=== PATIENT | male | born 1985 | race Caucasian/White ===

== ENCOUNTER 2021-07-30 08:46 | Outpatient (REF) | payer OTHER, SELFPAY ==
[2021-07-30 09:09] LABS: COVID-19 Test Negative (Negative); IDNOW Serial# 16C4AD1C
== END 2021-07-30 08:47 | disposition home or self-care (01) ==
LOC: HO.LAB 08:46
PROVIDERS: Visit Provider Internal Medicine
DX: Z20.822 Contact with and (suspected) exposure to COVID-19 (principal)
CPT/HCPCS: 36415; 87635; C9803

== ENCOUNTER 2021-11-26 09:15 | Outpatient (REF) | payer OTHER, SELFPAY ==
[2021-11-26 10:33] LABS: Alanine Aminotransferase 36 U/L (0-40); Aspartate Amino Transferase 28 U/L (5-37); Gamma Glutamyl Transpeptidase 15 U/L (11-51)
== END 2021-11-26 09:16 | disposition home or self-care (01) ==
LOC: HO.LAB 09:15
PROVIDERS: Visit Provider Nurse Practitioner Family
DX: F11.20 Opioid dependence, uncomplicated (principal)
CPT/HCPCS: 36415; 82977; 84450; 84460

== ENCOUNTER 2023-11-27 19:45 | Emergency (ER) | payer OTHER, SELFPAY ==
--- NOTE | 2023-11-27 | ECG_ITS ---
Test Reason : SEIZURE Blood Pressure : / mmHG Vent. Rate : 090 BPM Atrial Rate : 090 BPM P-R Int : 148 ms QRS Dur : 090 ms QT Int : 372 ms P-R-T Axes : 045 005 041 degrees QTc Int : 455 ms Normal sinus rhythm Normal ECG When compared with ECG of 09-FEB-2005 11:33, Vent. rate has increased BY 34 BPM Questionable change in QRS axis ST now depressed in Anterior leads QT has lengthened Referred By: Generic ED Physician Electronically Signed By:Kael Zambrano
--- NOTE | ~2023-11-27 | CT_ITS ---
EXAMINATION: CT HEAD WITHOUT CONTRAST CLINICAL INFORMATION: New onset seizure COMPARISON: None available. TECHNIQUE: Contiguous axial imaging was performed from the skull base to vertex without intravenous administration of contrast. This CT examination was performed using dose optimization techniques as appropriate, variously including the following: *Automated exposure control *Adjustment of mA and/or kV according to patient size (this includes techniques or standardized protocols for targeted exams where dose is matched to indication/reason for exam; i.e. extremities or head) *Use of iterative reconstruction technique DLP: 723 mGy-cm FINDINGS: There is no evidence of acute intracranial hemorrhage or territorial infarction. Prominent cisterna magna. No abnormal mass effect or midline shift is seen. Webb to white matter differentiation is well preserved. No extra-axial fluid collections are identified. The ventricles are normal in size. There is no abnormal attenuation within the brain parenchyma. The osseous structures and soft tissues are normal. The mastoid air cells and visualized portions of the paranasal sinuses are well aerated. CT/CT head/brain wo IV con IMPRESSION: No acute intracranial pathology.
[2023-11-27 19:50] VITALS: BP 120/80; BP 148/77; PULSE 109; PULSE 112; RESP 14; TEMP 36.9; O2SAT 95; O2SAT 98; BMI 29.3
--- NOTE | 2023-11-27 20:03 | ED.SEIZURE ---
HPI - Seizure General Chief Complaint: Seizure Stated Complaint: SEIZURE,NO SZ HISTORY Time Seen by Provider: 11/27/23 19:51 Source: patient and family Mode of arrival: EMS Limitations: no limitations History of Present Illness HPI Narrative: Patient has no history of seizure disorder on Suboxone was found on the kitchen floor conversing by his lasted for about 2 minutes tonic-clonic patient does not remember patient was confused and postictal after the episode no history of alcohol or drug abuse no family history of seizures no headache no sleep deprivation no use of cocaine or tramadol or Wellbutrin Related Data Previous Rx's ?Medication ?Instructions ?Recorded levetiracetam 500 mg tablet 500 mg PO BID #60 tabs 11/27/23 (Keppra) Allergies Allergy/AdvReac Type Severity Reaction Status Date / Time No Known Allergies Allergy Verified 11/27/23 19:52 Review of Systems Review of Systems: Yes all other systems are reviewed and are negative [facility] Social History Social History Alcohol intake: never Smoked in Last 30 Days: No Use of substances other than those prescribed or required for medical reasons: Yes Substance Use Type: Marijuana Advance Directives: No Advance Directives Information Provided: No Physical Exam Vital Signs: Vital Signs: Last Vital Signs Temp 98.1 F 11/27/23 22:15 Pulse 74 11/27/23 22:15 Resp 16 11/27/23 22:15 BP 134/74 11/27/23 22:15 Pulse Ox 95 11/27/23 22:05 O2 Del Method Room Air 11/27/23 22:05 BMI result Body Mass Index 29.3 Appearance: Alert. Oriented X3. No acute distress. Eyes: PERRLA, No Nystagmus ENT: Pharynx normal. Oral Mucosa moist, at nc no tongue bite Neck: Normal inspection. Neck supple. CVS: Normal heart rate and rhythm. Pulses normal. Respiratory: No respiratory distress. Equal air entry bilateral, no wheezing/rales/rhonchi Abdomen: Soft and nontender. Bowel sounds are present, no mass palpable, no CVA tenderness Skin: Skin warm and dry. Normal skin color. Normal skin turgor. Extremities: No lower extremity edema. No calf tenderness Neuro: Oriented X 3. No motor deficit. No sensory deficit.No cerebellar signs , cranial nerves II-XII intact Medications Administered Discontinued Medications Generic Name Dose Route Start Last Admin Trade Name Freq PRN Reason Stop Dose Admin Levetiracetam 1,000 mg in 100 mls @ 400 mls/hr 11/27/23 21:14 11/27/23 21:49 Keppra IV 11/27/23 21:28 Infused ONCE ONE Infusion Medical Decision Making Medical Decision Making [facility] Narrative: Patient with new onset grand mal seizure witnessed by patient's case discussed with Dr. Salinas advised to start care Keppra for now and will see him in 3 days for further management CT scan of the head was negative for HERMINIA or any injury Differential Diagnosis Differential Diagnoses: The differential diagnosis associated with the presentation includes Grand mal seizures Admission/Observation Consideration of admission/observation: Escalation of care including admission/observation considered Lab Data [facility] Lab Attestation statement: I reviewed the patient's lab results. 11/27/23 20:04 11/27/23 20:04 Labs: Lab Results 11/27/23 11/27/23 Range/Units 20:04 20:20 WBC 10.4 (4.8-10.8) X10*3/uL RBC 4.98 (4.60-5.80) X10*6/uL Hgb 14.2 (14.0-18.0) g/dl Hct 39.8 L (42.0-52.0) % MCV 79.9 L (80.0-98.0) fL MCH 28.5 (27.0-33.0) pg MCHC 35.7 (31.0-36.0) g/dl RDW 13.2 (11.0-16.0) % Plt Count 315 (160-400) X10*3/uL MPV 9.1 L (9.4-12.4) fL Immature Gran % (Auto) 0.7 H (0.0-0.4) % Neut % (Auto) 50.1 (45-73) % Lymph % (Auto) 40.3 H (20-40) % [place] % (Auto) 6.8 (2-11) % Eos % (Auto) 1.7 (0-4) % Baso % (Auto) 0.4 (0-2) % Lymph # (Auto) 4.2 (1.2-4.9) X10*3/uL [place] # (Auto) 0.7 (0.1-1.2) X10*3/uL Eos # (Auto) 0.2 (0.0-0.4) X10*3/uL Baso # (Auto) 0.0 (0.0-0.2) X10*3/uL Abs Immat Gran (auto) 0.07 H (0.00-0.03) X10*3/uL Absolute Neuts (auto) 5.2 (2.0-8.3) x10*3/uL Absolute Nucleated RBC 0.000 (0.0-0.012) X10*3/uL Nucleated RBC % (auto) 0.0 (0.0-0.2) /100WBC Sodium 141 (135-145) mmol/L Potassium 3.4 (3.3-5.1) mmol/L Chloride 106 (96-108) mmol/L Carbon Dioxide 23 (22-29) mmol/L Anion Gap 15 (12-20) BUN 15 (9-16) mg/dL Creatinine 0.86 (0.5-1.4) mg/dL Estim Creat Clear Calc 128.8 Estimated GFR > 60 Random Glucose 113 (60-115) mg/dL Calcium 9.5 (8.4-10.2) mg/dL Magnesium 2.2 (1.6-2.6) mg/dL Total Bilirubin 0.4 (0.0-1.0) mg/dL AST 23 (5-37) U/L ALT 17 (0-40) U/L Alkaline Phosphatase 90 (39-117) U/L Total Protein 7.5 (6.5-8.0) g/dL Albumin 4.4 (3.5-5.0) g/dL Urine Opiates Screen Not Detected (Not Detect) Urine Fentanyl Screen Not Detected (Not Detect) Ur Barbiturates Screen Not Detected (Not Detect) Ur Phencyclidine Scrn Not Detected (Not Detect) Ur Amphetamines Screen Not Detected (Not Detect) U Benzodiazepines Scrn Not Detected (Not Detect) Urine Cocaine Screen Not Detected (Not Detect) U Marijuana (THC) Screen Not Detected (Not Detect) Independent Interpretation I performed an independent interpretation of an: CT Scan Radiology Impression Discussion of test interpretation with radiology: I have reviewed the radiologist's reading. Discharge Plan Discharge Clinical Impression: Epileptic seizure Patient Disposition: Home, Self-Care Instructions: New-Onset Seizure in Adults (ED) Additional Instructions: Likely your have grand mal seizure Avoid sleep deprivation Do not drive or stay alone at a risky area for fall Start taking Keppra 500 mg twice daily and see Dr. Salinas on 11/30 Prescriptions: New levetiracetam [Keppra] 500 mg tablet 500 mg PO BID Qty: 60 0RF Referrals: Frederic Salinas MD [Physician] - 12/01/23 Interventions: ED Discharge Assessment Last Done: 11/27/23 22:15 Discharge Date/Time: 11/27/23 22:30 Print Language: Romansh
[2023-11-27 20:09] LABS: MANUAL DIFF FLAG NO
[2023-11-27 20:10] LABS: Basophils Percent Auto 0.4 % (0-2); Eosinophils Absolute Auto 0.2 X10*3/uL (0.0-0.4); Eosinophils Percent Auto 1.7 % (0-4); Hematocrit 39.8 % (42.0-52.0); Hemoglobin 14.2 g/dl (14.0-18.0); Imm Gran Abs Auto 0.07 X10*3/uL (0.00-0.03); Imm Gran Pct Auto 0.7 % (0.0-0.4); Lymphocytes Absolute Auto 4.2 X10*3/uL (1.2-4.9); Lymphocytes Percent Auto 40.3 % (20-40); Mean Corpuscular HGB Conc 35.7 g/dl (31.0-36.0); Mean Corpuscular Hemoglobin 28.5 pg (27.0-33.0); Mean Corpuscular Volume 79.9 fL (80.0-98.0); Mean Platelet Volume 9.1 fL (9.4-12.4); Monocytes Absolute Auto 0.7 X10*3/uL (0.1-1.2); Monocytes Percent Auto 6.8 % (2-11); Neutrophils Absolute Auto 5.2 x10*3/uL (2.0-8.3); Neutrophils Percent Auto 50.1 % (45-73); Platelet Count 315 X10*3/uL (160-400); Red Blood Count 4.98 X10*6/uL (4.60-5.80); Red Cell Distribution Width 13.2 % (11.0-16.0); White Blood Count 10.4 X10*3/uL (4.8-10.8)
[2023-11-27 20:23] LABS: Alanine Aminotransferase 17 U/L (0-40); Albumin Level 4.4 g/dL (3.5-5.0); Alkaline Phosphatase 90 U/L (39-117); Anion Gap 15 (12-20); Aspartate Amino Transferase 23 U/L (5-37); Bilirubin Total 0.4 mg/dL (0.0-1.0); Blood Urea Nitrogen 15 mg/dL (9-16); Calcium 9.5 mg/dL (8.4-10.2); Carbon Dioxide 23 mmol/L (22-29); Chloride 106 mmol/L (96-108); Creatinine Clr Calc Pharmacy 128.8; Estimated Glomerular Filt Rate > 60; Glucose Random 113 mg/dL (60-115); Magnesium 2.2 mg/dL (1.6-2.6); Potassium 3.4 mmol/L (3.3-5.1); Sodium 141 mmol/L (135-145); Total Protein 7.5 g/dL (6.5-8.0)
[2023-11-27 20:33] LABS: Amphetamine Screen Urine Not Detected (Not Detect); Barbiturates, Urine Not Detected (Not Detect); Benzodiazepines Screen Urine Not Detected (Not Detect); Cannabinoid Screen Urine Not Detected (Not Detect); Cocaine Screen Urine Not Detected (Not Detect); Fentanyl, urine Not Detected (Not Detect); Opiate Screen Urine Not Detected (Not Detect); Phencyclidine Screen Urine Not Detected (Not Detect)
[2023-11-27] MEDS: levETIRAcetam in NaCl (iso-os) 1,000 MG/100 ML PIGGYBACK 400 MG IV (21:27)
[2023-11-27 22:05] VITALS: BP 134/74; PULSE 68; RESP 16; TEMP 36.7; O2SAT 95
[2023-11-27 22:15] VITALS: BP 134/74; PULSE 74; RESP 16; TEMP 36.7
== END 2023-11-27 22:30 | disposition home or self-care (01) ==
PROVIDERS: Emergency Provider Internal Medicine
DX: R56.9 Unspecified convulsions (principal); R41.0 Disorientation, unspecified; Z79.899 Other long term (current) drug therapy; Z51.81 Encounter for therapeutic drug level monitoring
CPT/HCPCS: 36415; 70450; 80053; 80307; 83735; 85025; 93005; 96365; 99284; 99285; J1953

== ENCOUNTER → 2023-11-27 19:54 | Outpatient (BNV) | payer OTHER, SELFPAY | PROVIDERS: Emergency Provider Internal Medicine; Visit Provider Internal Medicine Cardiovascular Disease | DX: I45.81 Long QT syndrome (principal) | CPT/HCPCS: 93010 ==

== ENCOUNTER 2023-12-01 09:20 | Outpatient (REF) | payer OTHER, SELFPAY ==
[2023-12-01 10:32] LABS: Erythrocyte Sedimentation Rate 7 MM/HR (0-15)
[2023-12-02 09:50] LABS: Lyme Abs Screen <0.90 index
[2023-12-03 15:34] LABS: Anti Nuclear Antibody Screen NEGATIVE (NEGATIVE)
== END 2023-12-01 09:21 | disposition home or self-care (01) ==
LOC: HO.LAB 09:20
PROVIDERS: Visit Provider Psychiatry & Neurology Neurology
DX: R56.9 Unspecified convulsions (principal)
CPT/HCPCS: 36415; 85652; 86038; 86617; 86618

== ENCOUNTER 2023-12-17 15:05 | Outpatient (REF) | payer OTHER, SELFPAY ==
--- NOTE | ~2023-12-17 | MR_ITS ---
EXAMINATION: MR BRAIN WITHOUT AND WITH CONTRAST CLINICAL INFORMATION: Generalized seizure COMPARISON: None available. TECHNIQUE: Multiplanar, multisequence MRI of the brain was obtained before and after the intravenous administration of 9 mL Gadavist. FINDINGS: No acute intracranial hemorrhage or infarct. Dedicated coronal oblique imaging through the temporal lobes demonstrate symmetric size, signal intensity, and morphological appearance of the hippocampal formations. No evidence for mesial temporal sclerosis. . No edema, midline shift or hydrocephalus. No acute extra-axial fluid collections. The osseous structures are unremarkable. The pituitary gland, pineal gland and remaining midline structures are unremarkable. No orbital pathology. The paranasal sinuses and mastoid air cells are clear. MR/MR head/brain wo/w con IMPRESSION: Normal brain MRI.
[2023-12-17] MEDS: gadobutroL 10 ML VIAL IVPUSH (16:17)
== END 2023-12-17 15:06 | disposition home or self-care (01) ==
LOC: HO.MRI 15:05
PROVIDERS: Visit Provider Psychiatry & Neurology Neurology
DX: R56.9 Unspecified convulsions (principal)
CPT/HCPCS: 70553; A9585

== ENCOUNTER 2024-05-01 07:31 | Emergency (ER) | payer OTHER, SELFPAY ==
[2024-05-01 07:33] VITALS: BP 132/80; PULSE 69; RESP 18; TEMP 36.5; O2SAT 100; BMI 28.9
--- NOTE | 2024-05-01 07:49 | ED_ITS ---
HPI - Allergic Reaction General Chief complaint: Allergic Reaction Stated complaint: bee sting allergic reaction Time Seen by Provider: 05/01/24 07:49 Source: patient Mode of arrival: ambulatory Limitations: no limitations History of Present Illness ED Provider: Chauncey Lang PA-C HPI narrative: 38 yo male presents to the ER for evaluation of itching, burning in the site of a recent bee sting 3 days ago. He states he was riding a tractor mowing a lawn when he got stung on the underside of both of his upper extremities, probably 2 or 3 times he states. He states the areas are still very itchy and burning. They feel warm and swollen. He has taken Benadryl the last 2 nights with minimal relief. He has also tried [id number] topical creams like Benadryl and hydrocortisone with minimal relief. He denies any redness to the area, no streaking on his arms. No fevers or chills. No difficulty breathing or facial swelling. No history of anaphylaxis. MD complaint: allergic reaction Onset (ago): day(s) Exposure: insect bite Symptoms: itching Severity: moderate Treatment prior to arrival: benadryl and topical medicine Previous Allergic Reaction History: none Related Data Previous Rx's ?Medication ?Instructions ?Recorded levetiracetam 500 mg tablet 500 mg PO BID #60 tabs 11/27/23 (Keppra) prednisone 20 mg tablet 40 mg (2 x 20 mg) PO DAILY #8 tabs 05/01/24 Allergies Allergy/AdvReac Type Severity Reaction Status Date / Time No Known Allergies Allergy Verified 05/01/24 07:37 Review of Systems Review of Systems: Yes all other systems are reviewed and are negative [facility] Social History Social History Alcohol intake: never Smoked in Last 30 Days: No Use of substances other than those prescribed or required for medical reasons: No Substance Use Type: Marijuana Advance Directives: No Advance Directives Information Provided: Yes Do you have a plan to hurt others: No Plan Physical Exam ED Vital Signs: Vital Signs - 24 hr 05/01/24 07:33 05/01/24 07:58 Temperature 97.7 F 98.0 F Pulse Rate 69 72 Respiratory Rate 18 18 Blood Pressure 132/80 134/69 Pulse Oximetry 100 100 Oxygen Delivery Method Room Air Room Air BMI result Body Mass Index 28.9 Appearance: Alert. Oriented X3. No acute distress. Head: normocephalic, atraumatic. Eyes: Pupils equal, round and reactive to light. ENT: Pharynx normal. No tonsillar swelling or exudate. Neck: Normal inspection. Neck supple. CVS: Normal heart rate and rhythm. Pulses normal. Respiratory: No respiratory distress. Breath sounds normal. Skin: Skin warm and dry. Normal skin color. Normal skin turgor. dorsum of the bilateral upper arms are mildly swollen, no erythema, no obvious sting sites, mild warmth to touch. no rashes. Extremities: No lower extremity edema. No joint swelling. Neuro/psych: Oriented X 3. grossly normal nonfocal Medical Decision Making Medical Decision Making MDM Narrative: 38-year-old male presents to the ER for evaluation of a pruritic and burning sensation to the underside of both of his arms after he got stung by bees in the area 3 days ago. Minimal relief with Benadryl and topical agents. Exam was consistent with some mild inflammatory response due to the bee stings. No evidence of cellulitis. No large hives present. Due to his ongoing symptoms will treat with short course of prednisone. Encouraged to continue antihistamines and topical agents for his symptoms. Stable for discharge home, return precautions were discussed. Differential Diagnosis Differential Diagnoses: The differential diagnosis associated with the presentation includes allergic reaction, hives, contact dermatitis, hypersensitivity reaction, neuropathy, cellulitis. External Record Review External record reviewed: Prior outpatient labs Prescription Management I considered prescription management with: Pain Medication and Other (Steroids and antihistamines) Critical Care Time Critical Care Time Critical Care Time: No Discharge Plan Discharge Clinical Impression: Allergic reaction Qualifiers: Encounter type: initial encounter Qualified Code(s): T78.40XA - Allergy, unspecified, initial encounter Patient Disposition: Home, Self-Care Instructions: General Allergic Reaction (ED) Additional Instructions: Take the prescribed Benadryl each morning for the next 4 days. Continue to take antihistamines until your symptoms are resolved. If Benadryl makes her too tired, you can take Claritin or Zyrtec in the morning. Continue to use topical hydrocortisone and Benadryl as needed for your symptoms. Monitor for signs of infection including increased redness, pain, swelling, warmth and firmness. If you develop new or worsening symptoms call 911 or come back to the ER for further evaluation. Prescriptions: New prednisone 20 mg tablet 40 mg PO DAILY Qty: 8 0RF No Action levetiracetam [Keppra] 500 mg tablet 500 mg PO BID Qty: 60 0RF Interventions: ED Discharge Assessment Last Done: 05/01/24 07:58 Discharge Date/Time: 05/01/24 08:03 Print Language: [place]
[2024-05-01 07:58] VITALS: BP 134/69; PULSE 72; RESP 18; TEMP 36.7; O2SAT 100
== END 2024-05-01 08:03 | disposition home or self-care (01) ==
LOC: HO.ED 08:00
PROVIDERS: Emergency Provider Emergency Medicine
DX: T63.441A Toxic effect of venom of bees, accidental (unintentional), initial encounter (principal); L29.8 Other pruritus; Y92.017 Garden or yard in single-family (private) house as the place of occurrence of the external cause
CPT/HCPCS: 99283; 99284

== ENCOUNTER 2024-07-18 05:30 | Emergency (ER) | payer OTHER, SELFPAY ==
--- NOTE | 2024-07-18 | ECG_ITS ---
Test Reason : SEIZURE Blood Pressure : / mmHG Vent. Rate : 101 BPM Atrial Rate : 101 BPM P-R Int : 138 ms QRS Dur : 088 ms QT Int : 360 ms P-R-T Axes : 051 006 026 degrees QTc Int : 466 ms Sinus tachycardia Otherwise normal ECG When compared with ECG of 27-NOV-2023 19:54, No significant change was found Referred By: Generic ED Physician Electronically Signed By:BENSON BRINK
[2024-07-18 05:36] VITALS: BMI 27.5
[2024-07-18 05:47] LABS: MANUAL DIFF FLAG NO
[2024-07-18 05:48] LABS: Basophils Absolute Auto 0.1 X10*3/uL (0.0-0.2); Basophils Percent Auto 0.4 % (0-2); Eosinophils Absolute Auto 0.3 X10*3/uL (0.0-0.4); Eosinophils Percent Auto 2.1 % (0-4); Hematocrit 42.7 % (42.0-52.0); Hemoglobin 14.7 g/dl (14.0-18.0); Imm Gran Abs Auto 0.06 X10*3/uL (0.00-0.03); Imm Gran Pct Auto 0.4 % (0.0-0.4); Lymphocytes Absolute Auto 4.1 X10*3/uL (1.2-4.9); Lymphocytes Percent Auto 29.3 % (20-40); Mean Corpuscular HGB Conc 34.4 g/dl (31.0-36.0); Mean Corpuscular Hemoglobin 28.1 pg (27.0-33.0); Mean Corpuscular Volume 81.6 fL (80.0-98.0); Neutrophils Absolute Auto 8.5 x10*3/uL (2.0-8.3); Neutrophils Percent Auto 60.8 % (45-73); Platelet Count 322 X10*3/uL (160-400); Red Blood Count 5.23 X10*6/uL (4.60-5.80); Red Cell Distribution Width 12.8 % (11.0-16.0); White Blood Count 13.9 X10*3/uL (4.8-10.8)
[2024-07-18 06:03] LABS: Alanine Aminotransferase 15 U/L (0-40); Albumin Level 4.6 g/dL (3.5-5.0); Alkaline Phosphatase 89 U/L (39-117); Anion Gap 14 (12-20); Aspartate Amino Transferase 24 U/L (5-37); Bilirubin Total 0.7 mg/dL (0.0-1.0); Blood Urea Nitrogen 19 mg/dL (9-16); Calcium 9.7 mg/dL (8.4-10.2); Carbon Dioxide 25 mmol/L (22-29); Chloride 105 mmol/L (96-108); Creatinine Clr Calc Pharmacy 108.4; Estimated Glomerular Filt Rate > 60; Glucose Random 108 mg/dL (60-115); Potassium 3.5 mmol/L (3.3-5.1); Sodium 140 mmol/L (135-145); Total Protein 7.5 g/dL (6.5-8.0)
[2024-07-18 06:46] VITALS: BP 113/63; PULSE 73; RESP 12; TEMP 36.9; O2SAT 99
[2024-07-18] MEDS: 0.9 % Sodium Chloride 1,000 ML 999 ML IV (07:36)
[2024-07-18] MEDS: levETIRAcetam in NaCl (iso-os) 1,000 MG/100 ML PIGGYBACK 400 MG IV (07:36)
[2024-07-18 07:37] VITALS: BP 119/75; PULSE 70; RESP 16; O2SAT 99
--- NOTE | 2024-07-18 07:51 | ED_ITS ---
HPI - Seizure General Chief Complaint: Seizure Stated Complaint: sezuire in sleep Time Seen by Provider: 07/18/24 06:54 Source: patient and other Mode of arrival: ambulatory Limitations: no limitations History of Present Illness ED Provider: GERARDO HPI Narrative: 38 yo male with PMH of seizures on keppra 500mg BID, last seizure 6 months ago, uses suboxone as well - he notes possibly missing 2 doses of his keppra yesterday and then worked all day and did not drink enough water. He had a 1 min GTC seizure in bed and was postictal. No other recent issues or complaints. Normal amount of stress. No trauma with seizure other than abrasion on R tongue MD complaint: seizure Onset (ago): hour(s) (1) Description of Episode: loss of consciousness and tonic-clonic movement Duration of episode: 1 -: minutes(s) Witnessed: Yes - by Bystander Trauma: No Seizure History: No Place: Home Possible Precipitating Event: medication Associated symptoms: denies other symptoms Treatments prior to arrival: none Related Data Previous Rx's ?Medication ?Instructions ?Recorded levetiracetam 500 mg tablet 500 mg PO BID #60 tabs 11/27/23 (Keppra) prednisone 20 mg tablet 40 mg (2 x 20 mg) PO DAILY #8 tabs 05/01/24 Allergies Allergy/AdvReac Type Severity Reaction Status Date / Time No Known Allergies Allergy Verified 07/18/24 05:39 Review of Systems 2 Review of Systems: Constitutional : No Fever, No Chills, No Fatigue ENT/Mouth : No sore throat, No Rhinorrhea Eyes: No Eye Pain, No Swelling, No Redness Cardiovascular : No Chest Pain, No SOB, No Dyspnea on Exertion Respiratory : No Cough, No Sputum Gastrointestinal : No Nausea, No Vomiting, No Diarrhea, No abdominal Pain Genitourinary : No Dysuria, No Urinary Frequency, No Hematuria, Musculoskeletal : No joint pain, No Myalgias, No Joint Swelling Skin : No Skin Lesions, No rash Neuro : No Weakness, No Numbness, No Dizziness, no Headache, pos seizure All other systems reviewed and are negative [facility] Past Medical History Attestation statement: The following information was validated with the patient. Source: old records reviewed Medical History Seizure Social History Social History (Updated 07/18/24 @ 07:57 by Leticia Jones DO) Alcohol intake: never Patient Tobacco Use Status: Tobacco use Unknown Substance Use Type: Marijuana Advance Directives: No Advance Directives Information Provided: Yes Physical Exam 2 Vital Signs: Vital Signs: Last Vital Signs Temp 98.5 F 07/18/24 06:46 Pulse 70 07/18/24 07:37 Resp 16 07/18/24 07:37 BP 119/75 07/18/24 07:37 Pulse Ox 99 07/18/24 07:37 O2 Del Method Room Air 07/18/24 07:37 BMI result Body Mass Index 27.5 Appearance: Alert. Oriented X3. No acute distress. Eyes: Pupils equal, round and reactive to light. ENT: Pharynx mild abrasion R side of tongue. atraumatic Neck: Normal inspection. Neck supple. CVS: Normal heart rate and rhythm. Pulses normal. Respiratory: No respiratory distress. Breath sounds normal. Abdomen: Soft and nontender. Skin: Skin warm and dry. Normal skin color. Extremities: No lower extremity edema. Neuro: Oriented X 3. No motor deficit. No sensory deficit. Medications Administered Generic Name Dose Route Start Last Admin Trade Name Freq PRN Reason Stop Dose Admin Sodium Chloride 1,000 mls @ 999 mls/hr 07/18/24 07:19 07/18/24 07:36 Ns IV 07/18/24 08:19 999 mls/hr .Q1H1M ONE Administration Discontinued Medications Generic Name Dose Route Start Last Admin Trade Name Freq PRN Reason Stop Dose Admin Levetiracetam 1,000 mg in 100 mls @ 400 mls/hr 07/18/24 07:19 07/18/24 07:36 Keppra IV 07/18/24 07:33 400 mls/hr ONCE ONE Administration Medical Decision Making Medical Decision Making MDM Narrative: 38 yo male with PMH of seizures on keppra 500mg BID here with c/o of seizure in bed back to baseline now but was postictal - no head trauma, not toxic, suspect due to lack of medications - will start on fluids and IV keppra. No other concerns at this time Differential Diagnosis Differential Diagnoses: The differential diagnosis associated with the presentation includes lyte abnormality, lack of medications, epilepsy Admission/Observation Consideration of admission/observation: Escalation of care including admission/observation considered at baseline has meds at home stable for DC Lab Data MDM Lab Attestation statement: I reviewed the patient's lab results. 07/18/24 05:43 07/18/24 05:43 Labs: Lab Results 07/18/24 Range/Units 05:43 WBC 13.9 H (4.8-10.8) X10*3/uL RBC 5.23 (4.60-5.80) X10*6/uL Hgb 14.7 (14.0-18.0) g/dl Hct 42.7 (42.0-52.0) % MCV 81.6 (80.0-98.0) fL MCH 28.1 (27.0-33.0) pg MCHC 34.4 (31.0-36.0) g/dl RDW 12.8 (11.0-16.0) % Plt Count 322 (160-400) X10*3/uL MPV 9.0 L (9.4-12.4) fL Immature Gran % (Auto) 0.4 (0.0-0.4) % Neut % (Auto) 60.8 (45-73) % Lymph % (Auto) 29.3 (20-40) % [place] % (Auto) 7.0 (2-11) % Eos % (Auto) 2.1 (0-4) % Baso % (Auto) 0.4 (0-2) % Lymph # (Auto) 4.1 (1.2-4.9) X10*3/uL [place] # (Auto) 1.0 (0.1-1.2) X10*3/uL Eos # (Auto) 0.3 (0.0-0.4) X10*3/uL Baso # (Auto) 0.1 (0.0-0.2) X10*3/uL Abs Immat Gran (auto) 0.06 H (0.00-0.03) X10*3/uL Absolute Neuts (auto) 8.5 H (2.0-8.3) x10*3/uL Absolute Nucleated RBC 0.000 (0.0-0.012) X10*3/uL Nucleated RBC % (auto) 0.0 (0.0-0.2) /100WBC Sodium 140 (135-145) mmol/L Potassium 3.5 (3.3-5.1) mmol/L Chloride 105 (96-108) mmol/L Carbon Dioxide 25 (22-29) mmol/L Anion Gap 14 (12-20) BUN 19 H (9-16) mg/dL Creatinine 0.99 (0.5-1.4) mg/dL Estim Creat Clear Calc 108.4 Estimated GFR > 60 Random Glucose 108 (60-115) mg/dL Calcium 9.7 (8.4-10.2) mg/dL Total Bilirubin 0.7 (0.0-1.0) mg/dL AST 24 (5-37) U/L ALT 15 (0-40) U/L Alkaline Phosphatase 89 (39-117) U/L Total Protein 7.5 (6.5-8.0) g/dL Albumin 4.6 (3.5-5.0) g/dL Independent Interpretation I performed an independent interpretation of an: EKG Interpretation: Rate: 101 Rhythm: sinus tach [place]: left Normal P waves. Normal MANJU. Normal QRS complex. ST T wave : no GILBERT, t wave inversion V1 qTC: 466 prior studies: no acute ischemia The study has been interpreted contemporaneously by me. . Independent Historian Clinical information obtained from an independent historian. History obtained from or confirmed by: Spouse Discharge Plan Discharge Clinical Impression: Epileptic seizure Patient Disposition: Home, Self-Care Instructions: Epilepsy (ED) Additional Instructions: rest and stay hydrated given keppra while in the ED return for worsening symptoms or any other concerns. Prescriptions: No Action levetiracetam [Keppra] 500 mg tablet 500 mg PO BID Qty: 60 0RF prednisone 20 mg tablet 40 mg PO DAILY Qty: 8 0RF Print Language: Yi
[2024-07-18 08:44] VITALS: BP 117/69; PULSE 72; RESP 18; TEMP 36.7; O2SAT 99
[2024-07-21 11:13] LABS: Levetiracetam Keppra 2.4 mcg/mL (6.0-46.0)
== END 2024-07-18 08:47 | disposition home or self-care (01) ==
PROVIDERS: Emergency Provider Emergency Medicine
DX: G40.909 Epilepsy, unspecified, not intractable, without status epilepticus (principal); R40.4 Transient alteration of awareness; R00.0 Tachycardia, unspecified; Z79.899 Other long term (current) drug therapy
CPT/HCPCS: 36415; 80053; 80177; 85025; 93005; 99284; J1953

== ENCOUNTER → 2024-07-18 05:46 | Outpatient (BNV) | payer OTHER, SELFPAY | PROVIDERS: Emergency Provider Emergency Medicine; Visit Provider Internal Medicine | DX: R00.0 Tachycardia, unspecified (principal) | CPT/HCPCS: 93010 ==

== ENCOUNTER 2024-11-09 07:54 | Emergency (ER) | payer OTHER, SELFPAY ==
[2024-11-09 07:58] VITALS: BP 148/81; PULSE 90; TEMP 36.7; O2SAT 99; BMI 26.9
--- NOTE | 2024-11-09 08:46 | ED.SEIZURE ---
HPI - Seizure General Chief Complaint: Seizure Stated Complaint: seizure Time Seen by Provider: 11/09/24 08:44 Source: patient, RN notes reviewed, old records reviewed and other (significant other) Mode of arrival: ambulatory Limitations: no limitations History of Present Illness ED Provider: Rosalina [facility] Narrative: Patient is a 38-year-old male with history of seizures, currently on keppra 500mg BID, also on suboxone presenting to the emergency department with significant other who reports that patient had a seizure this morning lasting approximately one minute followed by postictal period. Seizure was while patient was in bed, he did not fall, no headstrike. She reports tonic-clonic activity. Patient states he has been taking his keppra as prescribed without any missed doses. Denies recent nausea, vomiting, diarrhea. Denies and recent illness. Denies recent fall or other trauma. Reports mild headache now. Has seen Dr. Salinas for neuro, but is getting a second opinion with a [facility] neurologist at the end of the month. MD complaint: seizure Onset (ago): hour(s) Description of Episode: loss of consciousness and tonic-clonic movement Duration of episode: 1 -: minutes(s) Witnessed: Yes - by Bystander Trauma: No Seizure History: Yes Place: Home Associated symptoms: other (mild headache) Treatments prior to arrival: none Related Data Previous Rx's ?Medication ?Instructions ?Recorded levetiracetam 500 mg tablet 500 mg PO BID #60 tabs 11/27/23 (Keppra) prednisone 20 mg tablet 40 mg (2 x 20 mg) PO DAILY #8 tabs 05/01/24 Allergies Allergy/AdvReac Type Severity Reaction Status Date / Time No Known Allergies Allergy Verified 11/09/24 08:06 Review of Systems Review of Systems: As per HPI. Yes all other systems are reviewed and are negative Constitutional: Constitutional: Reports as per HPI [facility], [facility] Past Medical History Medical History Seizure Social History Social History (Updated 07/18/24 @ 07:57 by Leticia Jones DO) Alcohol intake: never Patient Tobacco Use Status: Tobacco use Unknown Substance Use Type: Marijuana Advance Directives: No Advance Directives Information Provided: Yes Do you have a plan to hurt others: No Plan Physical Exam Vital Signs: Vital Signs: Last Vital Signs Temp 98.0 F 11/09/24 07:58 Pulse 90 11/09/24 07:58 BP 148/81 H 11/09/24 07:58 Pulse Ox 99 11/09/24 07:58 O2 Del Method Room Air 11/09/24 07:58 BMI result Body Mass Index 26.9 Vital signs have been reviewed and appear to be correct. Blood pressure normal. Heart rate normal. Respiratory rate normal. Temperature normal. Oxygen saturation normal. Const: General: cooperative, healthy appearing and no acute distress Orientation/consciousness: oriented to person, oriented to place, oriented to time and patient oriented x3 Limitations: no limitations HEENT: Head: Yes normocephalic and Yes atraumatic Ears: external ears normal General nose exam: Normal external nose present Face and sinus: Yes face symmetric Mouth: oropharynx normal and moist mucous membranes Throat: Yes uvula midline Eyes: Pupils: Equal, round and reactive pupils present Neck: Neck: Yes normal visual inspection and Yes supple Resp: Effort & Inspection: normal respiratory effort and able to speak in complete sentences Auscultation: clear to auscultation bilaterally Cardio: Rate: regular rate Rhythm: regular rhythm Heart sounds: S1 normal heart sound present and S2 normal heart sound present GI: Palpation (GI): Soft to palpation and nontender Auscultation: normoactive bowel sounds : General: Yes no CVA tenderness Back/Spine/Pelvis: Back: no CVA tenderness Skin: General skin exam: elasticity normal and turgor normal Neuro: General: oriented to person, oriented to place, oriented to time, patient oriented x3, moves all extremities, no focal motor deficits and CN's II-XI intact bilaterally Cranial nerves: Yes Equal, round and reactive pupils present Cognition (Neuro): normal cognition Extrem: General: Yes full ROM, Yes no pedal edema and Yes no calf tenderness Psych: Mental Status: mental status grossly normal Affect: normal affect Thought process: Normal thought process present Medications Administered Discontinued Medications Generic Name Dose Route Start Last Admin Trade Name Júniorq PRN Reason Stop Dose Admin Acetaminophen 975 mg 11/09/24 10:01 11/09/24 10:12 Acetaminophen 325 Mg Tablet PO 11/09/24 10:02 975 mg ONCE ONE Administration Levetiracetam 500 mg 11/09/24 10:01 11/09/24 10:12 Levetiracetam 500 Mg Tablet PO 11/09/24 10:02 500 mg ONCE ONE Administration Medical Decision Making Medical Decision Making [facility] Narrative: Patient is a 38-year-old male with history of seizures, currently on keppra 500mg BID, also on suboxone presenting to the emergency department with significant other who reports that patient had a seizure this morning lasting approximately one minute followed by postictal period. On exam patient is awake, A+Ox3, VS WNL, afebrile, normal neurological exam without focal deficits, physical exam findings as above. Given reported symptoms and physical exam findings, initial differential includes but is not limited to seizure, electrolyte abnormality, drug or alcohol intoxication or withdrawal. Labs notable for no leukocytosis, no significant electrolyte abnormalities, normal lactic. Urine drug screen notable only for buprenorphine. No evidence of infection on urinalysis. Results discussed with patient and all questions answered. Patient states he has a follow up appointment with Dr. Salinas, neurologist, on Friday. Advised patient to continue with his normal dose of Keppra until he sees Dr. Salinas. Return precautions discussed. Patient verbalized understanding of and agreement with plan. Differential Diagnosis Differential Diagnoses: The differential diagnosis associated with the presentation includes As per [facility] Admission/Observation Consideration of admission/observation: Escalation of care including admission/observation considered Patient would have been admitted to the hospital had their work up had any findings where hospital admission was appropriate and their clinical presentation warranted hospital admission. Lab Data [facility] Lab Attestation statement: I reviewed the patient's lab results. as per [facility] 11/09/24 08:52 11/09/24 08:52 Labs: Lab Results 11/09/24 11/09/24 Range/Units 08:52 10:18 WBC 9.0 (4.8-10.8) X10*3/uL RBC 5.20 (4.60-5.80) X10*6/uL Hgb 14.9 (14.0-18.0) g/dl Hct 43.5 (42.0-52.0) % MCV 83.7 (80.0-98.0) fL MCH 28.7 (27.0-33.0) pg MCHC 34.3 (31.0-36.0) g/dl RDW 12.6 (11.0-16.0) % Plt Count 281 (160-400) X10*3/uL MPV 9.0 L (9.4-12.4) fL Immature Gran % (Auto) 0.4 (0.0-0.4) % Neut % (Auto) 71.7 (45-73) % Lymph % (Auto) 19.8 L (20-40) % Graham % (Auto) 6.8 (2-11) % Eos % (Auto) 0.7 (0-4) % Baso % (Auto) 0.6 (0-2) % Lymph # (Auto) 1.8 (1.2-4.9) X10*3/uL Graham # (Auto) 0.6 (0.1-1.2) X10*3/uL Eos # (Auto) 0.1 (0.0-0.4) X10*3/uL Baso # (Auto) 0.1 (0.0-0.2) X10*3/uL Abs Immat Gran (auto) 0.04 H (0.00-0.03) X10*3/uL Absolute Neuts (auto) 6.4 (2.0-8.3) x10*3/uL Absolute Nucleated RBC 0.000 (0.0-0.012) X10*3/uL Nucleated RBC % (auto) 0.0 (0.0-0.2) /100WBC Sodium 139 (135-145) mmol/L Potassium 4.2 (3.3-5.1) mmol/L Chloride 107 (96-108) mmol/L Carbon Dioxide 28 (22-29) mmol/L Anion Gap 8 L (12-20) BUN 14 (9-16) mg/dL Creatinine 0.88 (0.5-1.4) mg/dL Estim Creat Clear Calc 112.2 Estimated GFR > 60 Random Glucose 102 (60-115) mg/dL Lactic Acid 1.3 (0.5-2.0) mmol/L Calcium 9.5 (8.4-10.2) mg/dL Magnesium 2.1 (1.6-2.6) mg/dL Total Bilirubin 0.7 (0.0-1.0) mg/dL AST 22 (5-37) U/L ALT 14 (0-40) U/L Alkaline Phosphatase 81 (39-117) U/L Total Protein 7.3 (6.5-8.0) g/dL Albumin 4.5 (3.5-5.0) g/dL Urine Color Dark Yellow Urine Appearance Turbid Urine pH >= 9.0 (5.0-9.0) Ur Specific Erhard >= 1.030 H (1.005-1.025) Urine Protein 30 (1+) H (Neg-Trace) mg/dL Urine Glucose (UA) Negative (Negative) mg/dL Urine Ketones Trace (Negative) mg/dL Urine Blood Negative (Negative) Urine Nitrite Negative (Negative) Ur Leukocyte Esterase Negative (Negative) Urine RBC 0-2 (0-2) /HPF Urine WBC 0-5 (0-5) /HPF Ur Squamous Epith Cells 0-2 (0-2) /HPF Urine Bacteria None Seen (None Seen) Hyaline Casts 0-2 (0-2) /LPF Urine Opiates Screen Not Detected (Not Detect) Ur Buprenorphine Scrn Positive H (Not Detect) ng/mL Ur Oxycodone Screen Not Detected (Not Detect) ng/mL Urine Methadone Screen Not Detected (Not Detect) ng/mL Urine Fentanyl Screen Not Detected (Not Detect) Ur Barbiturates Screen Not Detected (Not Detect) Ur Phencyclidine Scrn Not Detected (Not Detect) Ur Amphetamines Screen Not Detected (Not Detect) U Benzodiazepines Scrn Not Detected (Not Detect) Urine Cocaine Screen Not Detected (Not Detect) U Marijuana (THC) Screen Not Detected (Not Detect) Ethyl Alcohol < 10 mg/dL External Record Review External record reviewed: Inpatient record, Office record and Outpatient record Discharge Plan Discharge Clinical Impression: Epileptic seizure Patient Disposition: Home, Self-Care Instructions: Epilepsy (DC) Additional Instructions: You were evaluated in the emergency department today after witnessed seizure-like activity. You did not have any additional seizures while here in the emergency department. Your evaluation did not show evidence of any conditions requiring emergent medical treatment at this time. We recommend that you keep your follow-up with your neurologist on Friday. Return to the emergency department with additional episodes of seizures, dizziness or lightheadedness, confusion, difficulty walking or any other concerning symptoms. Prescriptions: No Action levetiracetam [Keppra] 500 mg tablet 500 mg PO BID Qty: 60 0RF prednisone 20 mg tablet 40 mg PO DAILY Qty: 8 0RF Print Language: Cymraes
[2024-11-09 08:57] LABS: MANUAL DIFF FLAG NO
[2024-11-09 08:58] LABS: Basophils Absolute Auto 0.1 X10*3/uL (0.0-0.2); Basophils Percent Auto 0.6 % (0-2); Eosinophils Absolute Auto 0.1 X10*3/uL (0.0-0.4); Eosinophils Percent Auto 0.7 % (0-4); Hematocrit 43.5 % (42.0-52.0); Hemoglobin 14.9 g/dl (14.0-18.0); Imm Gran Abs Auto 0.04 X10*3/uL (0.00-0.03); Imm Gran Pct Auto 0.4 % (0.0-0.4); Lymphocytes Absolute Auto 1.8 X10*3/uL (1.2-4.9); Lymphocytes Percent Auto 19.8 % (20-40); Mean Corpuscular HGB Conc 34.3 g/dl (31.0-36.0); Mean Corpuscular Hemoglobin 28.7 pg (27.0-33.0); Mean Corpuscular Volume 83.7 fL (80.0-98.0); Monocytes Absolute Auto 0.6 X10*3/uL (0.1-1.2); Monocytes Percent Auto 6.8 % (2-11); Neutrophils Absolute Auto 6.4 x10*3/uL (2.0-8.3); Neutrophils Percent Auto 71.7 % (45-73); Platelet Count 281 X10*3/uL (160-400); Red Cell Distribution Width 12.6 % (11.0-16.0)
[2024-11-09 09:18] LABS: Lactic Acid 1.3 mmol/L (0.5-2.0)
[2024-11-09 09:19] LABS: Alanine Aminotransferase 14 U/L (0-40); Albumin Level 4.5 g/dL (3.5-5.0); Alkaline Phosphatase 81 U/L (39-117); Anion Gap 8 (12-20); Aspartate Amino Transferase 22 U/L (5-37); Bilirubin Total 0.7 mg/dL (0.0-1.0); Blood Urea Nitrogen 14 mg/dL (9-16); Calcium 9.5 mg/dL (8.4-10.2); Carbon Dioxide 28 mmol/L (22-29); Chloride 107 mmol/L (96-108); Creatinine Clr Calc Pharmacy 112.2; Estimated Glomerular Filt Rate > 60; Ethanol < 10 mg/dL; Glucose Random 102 mg/dL (60-115); Magnesium 2.1 mg/dL (1.6-2.6); Potassium 4.2 mmol/L (3.3-5.1); Sodium 139 mmol/L (135-145); Total Protein 7.3 g/dL (6.5-8.0)
[2024-11-09] MEDS: Acetaminophen 325 MG TABLET 975 MG PO (10:12)
[2024-11-09] MEDS: levETIRAcetam 500 MG TABLET PO (10:12)
[2024-11-09 10:36] LABS: Appearance Urine Turbid; Color Urine Dark Yellow; Glucose Urine UA Negative (Negative); Leukocyte Esterase Urine Negative (Negative); Nitrite Urine Negative (Negative); PH >= 9.0 (5.0-9.0); Specific Gravity - Urine >= 1.030 (1.005-1.025); UMIC TRIGGER UACC YES; Urine Blood Negative (Negative); Urine Ketones Trace mg/dL (Negative); Urine Protein 30 (1+) mg/dL (Neg-Trace)
[2024-11-09 10:42] LABS: Amphetamine Screen Urine Not Detected (Not Detect); Barbiturates, Urine Not Detected (Not Detect); Benzodiazepines Screen Urine Not Detected (Not Detect); Buprenorphine Scr Positive (Not Detect); Cannabinoid Screen Urine Not Detected (Not Detect); Cocaine Screen Urine Not Detected (Not Detect); Fentanyl, urine Not Detected (Not Detect); Methadone Screen, Urine Not Detected (Not Detect); Opiate Screen Urine Not Detected (Not Detect); Oxycodone Screen Urine Not Detected (Not Detect); Phencyclidine Screen Urine Not Detected (Not Detect)
[2024-11-09 10:45] LABS: Bacteria Urine None Seen (None Seen); Hyaline Casts Urine 0-2 /LPF (0-2); RBC Urine 0-2 /HPF (0-2); Squamous Epithelial Cell Urine 0-2 /HPF (0-2); WBC Urine 0-5 /HPF (0-5)
[2024-11-09 12:12] VITALS: BP 129/74; PULSE 57; RESP 16; TEMP 37.1; O2SAT 99
[2024-11-09 12:26] VITALS: BP 129/74; PULSE 57; RESP 16; TEMP 37.1; O2SAT 99
[2024-11-12 17:38] LABS: Levetiracetam Keppra 7.5 mcg/mL (6.0-46.0)
== END 2024-11-09 12:26 | disposition home or self-care (01) ==
PROVIDERS: Registered Nurse Emergency; Emergency Provider Emergency Medicine Emergency Medical Services
DX: G40.909 Epilepsy, unspecified, not intractable, without status epilepticus (principal)
CPT/HCPCS: 36415; 80053; 80177; 80307; 81001; 83605; 83735; 85025; 99283

== ENCOUNTER 2025-02-21 15:19 | Outpatient (AMB) | payer OTHER, SELFPAY ==
--- NOTE | 2025-02-21 15:32 | A.OFFVIS_ITS ---
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 There was nothing unusual at that time or that evening. He walked out of the house and apparently was witnessed to fall backwards and then convulsing. He convulsed for about a minute or more and urinated. He might also have hit his head on the ground as he had some symptoms of concussion. He came to [facility] where initial evaluation was okay and he was started her levetiracetam. He was doing okay with no further seizures. No obvious side effect to medicine. [facility] Medical History Seizure Social History (Updated 07/18/24 @ 07:57 by Leticia Jones DO) Alcohol intake: never Patient Tobacco Use Status: Tobacco use Unknown Substance Use Type: Marijuana Physical Exam Neuro Other: Mental Status: Alert and oriented to person, place, and time. Normal attention. Normal spontaneous speech, fluency, and comprehension. No obvious issues with mood and memory. Affect is appropriate. Cranial Nerves: CN II: Visual vera full to confrontation, visual acuity intact. CN III, IV, : Pupils equal, round, reactive to light and accommodation. Extraocular movements are normal. CN V: Facial sensation is normal. CN VII: Facial movements symmetrical. CN VIII: Hearing intact to bedside conversation is normal. CN IX, X: Palate elevates symmetrically. CN XI: Shoulder shrug and head turn symmetrical. CN XII: Tongue midline without atrophy or fasciculations. Motor: Bulk and tone normal in all extremities. No significant muscle weakness in arms and legs. No drift. Reflexes: Deep tendon reflexes 2+ and symmetric. Plantar response down-going bilaterally. Coordination: Evlhei-[id number] and iozj-[id number] testing normal. No dysmetria. Gait and Station: No obvious gait abnormality. No ataxia or instability. Sensory: Intact to light touch, pinprick, and vibration. Romberg is negative. Extrapyramidal: Full facial expressions and blinking. No rigidity. Movements are appropriate with no tremor or abnormality. Speech: Normal; no dysarthria or tremor. Assessment & Plan Assessment & Plan (1) Generalized seizure disorder: Comment: CT brain WO at [facility] in Nov 2023: OK EEG at off in January 2024: WNL MRI brain WWO at [facility] in January 2024: WNL (reported). Code(s): G40.309 - Generalized idiopathic epilepsy and epileptic syndromes, not intractable, without status epilepticus Category: Medical Plan Stable generalized seizure disorder. Levetiracetam 750 mg twice a day was continued. Medications: New levetiracetam 750 mg PO BID 180 tabs 0RF Coding Level of Care Code Est Pt Level 4 (72670) Diagnoses Generalized seizure disorder G40.309
--- OUTSIDE RECORDS SUMMARY | 2025-02-21 15:37 | XMS_ITS | Data Portability ---
Author Organization [facility] Address [address] [place] [address] Assessment Encounter Date Assessment Date Assessment LastModified by Organization Details LastModified Time 04/25/2021 04/25/2021 Telemedicine Information: This telmed (audio + visual) appointment provided a MAT prescription. Time Start: 1615; Time End:1638 Provider Location: office; Patient Location: office Telemedicine Consent Given (verbal): Y Lab Results > Last UDS Result (Qual Screen): POS Buprenorphine and NO illicit drugs > Last Confirmatory Test Result (LCMS/Quant): N/A due to Negative UDS > Last Buprenorphine Confirmation Test Result: Bup: 817 ng/ml & Norbup: 1054 ng/ml > Last LFT Result on 09/22/2019: WNL AND NO GGT Since Last Visit THIS PT IS BEING TREATED FOR OUD WITH BUPRENORPHINE AND IS SEEN MONTHLY. CURRENT PRESCRIPTION IS B/N 16/4 MG/DAY. DOSE AMOUNT TAKEN TODAY: Full dose > Bio/psycho/social Update: TODAY ARSLAN PRESENTS FOR MONTHLY MAT ASSMT CONTS TO PROV NEGATIVE UDS'S. HE IS DOING WELL W/ SOBRIETY NO CRAVING S, NO ILLICIT USE REPLIES NO CHANGES STO SOCIAL OR PSYSICAL STATUS RX N. 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 > 1) Interpretation of Confirmatory (LCMS) Test Result: N/A due to NEG UDS > 2) Interpretation of Last Buprenorphine Confirmation Test Result: No concern > 3) Medication Dose: No report of cravings/withdrawa l symptoms. Pt will remain at current dose > 4) Markers of Recovery include: UDS NEGATIVE, COMPLIANCE WITH SCHED APPMTS AND COUNSELING. > 5) Counseling: Engaged in Counseling The patient does meet diagnostic criteria for opioid dependence. The patient is responding to treatment with buprenorphine at OBOT level of care at this phase of treatment. The patient does continue to be a good candidate for this level of care. LFT will be repeated per our clinical protocol. Urine drug testing is ordered today with medical necessity as below. LAB ORDERS - Confirmatory testing for illicit substances or absence of prescribed buprenorphine. UNEXPECTED results on UDS may impact this patient's treatment plan. The following tests require confirmation via LCMS: Y POS for AMPHETAMINE Y POS for BENZODIAZEPINES Y POS for COCAINE Y POS for METHADONE Y POS for OPIATES (INCLUDING FENTANYL) Y POS for OXYCODONE ADDITIONAL LAB(S) REQUESTED - if indicated, please order the following: NONE Plan Patient's visit frequency should be monthly. Frequency of UDS and confirmatory test, if applicable, should be monthly. Treatment plan review or change includes continue current level of care. Referrals made today include none. Prescription monitoring program is reviewed. If reviewed, I have identified agents prescribed to the patient in addition to any issued by our program; the patient is counseled regarding any risk of combining sedating agents. [email or web address] Not available 04/25/2021 16:44:37 05/23/2021 05/23/2021 Telemedicine Information: This telmed (audio + visual) appointment provided a MAT prescription. Time Start: 1640; Time End:1652 Provider Location: office; Patient Location: office Telemedicine Consent Given (verbal): Y Lab Results > Last UDS Result (Qual Screen): POS Buprenorphine and NO illicit drugs > Last Confirmatory Test Result (LCMS/Quant): N/A due to Negative UDS > Last Buprenorphine Confirmation Test Result: Bup: 1323 ng/ml & Norbup: 1237 ng/ml > Last LFT Result on : OVERDUE Since Last Visit THIS PT IS BEING TREATED FOR OUD WITH BUPRENORPHINE AND IS SEEN MONTHLY. CURRENT PRESCRIPTION IS B/N 16/4MG/DAY. 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 > 1) Interpretation of Confirmatory (LCMS) Test Result: N/A due to NEG UDS > 2) Interpretation of Last Buprenorphine Confirmation Test Result: No concern > 3) Medication Dose: No report of cravings/withdrawa l symptoms. Pt will remain at current dose > 4) Markers of Recovery include: UDS NEGATIVE, COMPLIANCE WITH SCHED APPMTS AND COUNSELING. > 5) Counseling: Urged to enage in counseling The patient does meet diagnostic criteria for opioid dependence. The patient is responding to treatment with buprenorphine at OBOT level of care at this phase of treatment. The patient does continue to be a good candidate for this level of care. LFT will be repeated per our clinical protocol. Urine drug testing is ordered today with medical necessity as below. LAB ORDERS - Confirmatory testing for illicit substances or absence of prescribed buprenorphine. UNEXPECTED results on UDS may impact this patient's treatment plan. The following tests require confirmation via LCMS: Y POS for AMPHETAMINE Y POS for BENZODIAZEPINES Y POS for COCAINE Y POS for METHADONE Y POS for OPIATES (INCLUDING FENTANYL) Y POS for OXYCODONE ADDITIONAL LAB(S) REQUESTED - if indicated, please order the following: NONE Plan Patient's visit frequency should be monthly. Frequency of UDS and confirmatory test, if applicable, should be monthly. Treatment plan review or change includes continue current level of care. Referrals made today include none. Prescription monitoring program is reviewed. If reviewed, I have identified agents prescribed to the patient in addition to any issued by our program; the patient is counseled regarding any risk of combining sedating agents. [email or web address] Not available 05/23/2021 17:18:25 06/20/2021 06/20/2021 Lab Results > Last UDS Result (Qual Screen): POS Buprenorphine and NO illicit drugs > Last Confirmatory Test Result (LCMS/Quant): N/A due to Negative UDS > Last Buprenorphine Confirmation Test Result: Bup: 544 ng/ml & Norbup: 1193 ng/ml > Last LFT Result on 09/22/2019: WNL Since Last Visit THIS PT IS BEING TREATED FOR OUD WITH BUPRENORPHINE AND IS SEEN MONTHLY. CURRENT PRESCRIPTION IS BNX 16 MG TDD. DOSE AMOUNT TAKEN TODAY: Full dose NUMBER OF FULL TABS/FILMS REMAININ > Bio/psycho/social Update: 35 YO MALE HERE FOR F/U VISIT. MAT FOR OUD. STABLE, MONTHLY PT DOING WELL. DENIES USE/CRAVINGS/SIDE EFFECTS NEEDS TO SPEAK WITH HIS INSURER ABOUT BILLING ISSUES GOING [facility] PAYS $100 CO-PAY FOR FILMS, BUT GETS SEVERE H/A FROM TABS DISCUSSED SUBL AN OPTION. HE WILL CHECK WITH INSURER DISCUSSED IT A POSSIBLE MEANS TO TAPER SMOKES ONLY ~1 CIG/DAY. 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 Assessment The patient's current phase of treatment is Stable maintenance, OUD. > 1) Interpretation of Confirmatory (LCMS) Test Result: N/A due to NEG UDS > 2) Interpretation of Last Buprenorphine Confirmation Test Result: No concern > 3) Medication Dose: No report of cravings/withdrawa l symptoms. Pt will remain at current dose > 4) Markers of Recovery include: WORKING > 5) Counseling: Engaged in Counseling The patient does meet diagnostic criteria for opioid dependence. The patient is responding to treatment with buprenorphine at OBOT level of care at this phase of treatment. The patient does continue to be a good candidate for this level of care. LFT will be repeated per our clinical protocol. Urine drug testing is ordered today with medical necessity as below. ADDITIONAL LAB(S) REQUESTED: - if indicated, please order the following: NONE Plan Patient's visit frequency should be monthly. Frequency of UDS and confirmatory test, if applicable, should be monthly. Treatment plan review or change includes continue current level of care. Referrals made today include none. Prescription monitoring program is reviewed. If reviewed, I have identified agents prescribed to the patient in addition to any issued by our program; the patient is counseled regarding any risk of combining sedating agents. [email or web address] Not available 06/20/2021 17:13:53 07/18/2021 07/18/2021 Lab Results > Last UDS Result (Qual Screen): POS Buprenorphine and NO illicit drugs > Last Confirmatory Test Result (LCMS/Quant): N/A due to Negative UDS > Last Buprenorphine Confirmation Test Result: Bup: 530 ng/ml & Norbup: 302 ng/ml > Last LFT Result on 01/18/2021: WNL Since Last Visit THIS PT IS BEING TREATED FOR OUD WITH BUPRENORPHINE AND IS SEEN MONTHLY. CURRENT PRESCRIPTION IS BNX 16 MG TDD. DOSE AMOUNT TAKEN TODAY: Full dose NUMBER OF FULL TABS/FILMS REMAININ > Bio/psycho/social Update: 35 YO MALE HERE FOR F/U VISIT. MAT FOR OUD. STABLE, MONTHLY PT DOING WELL. DENIES USE/CRAVINGS/SIDE EFFECTS DOING WELL. DENIES USE/CRAVINGS/SIDE EFFECTS SMOKES ONLY ~1 CIG/DAY. 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 Assessment The patient's current phase of treatment is Stable maintenance, OUD. > 1) Interpretation of Confirmatory (LCMS) Test Result: N/A due to NEG UDS > 2) Interpretation of Last Buprenorphine Confirmation Test Result: No concern > 3) Medication Dose: No report of cravings/withdrawa l symptoms. Pt will remain at current dose > 4) Markers of Recovery include: WORKING > 5) Counseling: Engaged in Counseling The patient does meet diagnostic criteria for opioid dependence. The patient is responding to treatment with buprenorphine at OBOT level of care at this phase of treatment. The patient does not continue to be a good candidate for this level of care. LFT will be repeated per our clinical protocol. Urine drug testing is ordered today with medical necessity as below. ADDITIONAL LAB(S) REQUESTED: - if indicated, please order the following: NONE Plan Patient's visit frequency should be monthly. Frequency of UDS and confirmatory test, if applicable, should be monthly. Treatment plan review or change includes continue current level of care. Referrals made today include none. Prescription monitoring program not available. If reviewed, I have identified agents prescribed to the patient in addition to any issued by our program; the patient is counseled regarding any risk of combining sedating agents. [email or web address] Not available 07/18/2021 17:11:02 08/15/2021 08/15/2021 Telemedicine Information: This telmed (audio + visual) appointment provided a MAT prescription. Time Start: 1636; Time End:1647 Provider Location: office; Patient Location: office Telemedicine Consent Given (verbal): Y Lab Results > Last UDS Result (Qual Screen): POS Buprenorphine and NO illicit drugs > Last Confirmatory Test Result (LCMS/Quant): N/A due to Negative UDS > Last Buprenorphine Confirmation Test Result: Bup: 857 ng/ml & Norbup: 594 ng/ml > Last LFT Result on 01/18/2021: WNL---NO GGT Since Last Visit THIS PT IS BEING TREATED FOR OUD WITH BUPRENORPHINE AND IS SEEN MONTHLY. CURRENT PRESCRIPTION IS B/N 16/4 MG/DAY. 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 > 1) Interpretation of Confirmatory (LCMS) Test Result: N/A due to NEG UDS > 2) Interpretation of Last Buprenorphine Confirmation Test Result: No concern > 3) Medication Dose: No report of cravings/withdrawa l symptoms. Pt will remain at current dose > 4) Markers of Recovery include: UDS NEGATIVE, COMPLIANCE WITH SCHED APPMTS AND COUNSELING. > 5) Counseling: AD CARE---PRN The patient does meet diagnostic criteria for opioid dependence. The patient is responding to treatment with buprenorphine at OBOT level of care at this phase of treatment. The patient does continue to be a good candidate for this level of care. LFT will be repeated per our clinical protocol. Urine drug testing is ordered today with medical necessity as below. LAB ORDERS - Confirmatory testing for illicit substances or absence of prescribed buprenorphine. UNEXPECTED results on UDS may impact this patient's treatment plan. The following tests require confirmation via LCMS: Y POS for AMPHETAMINE Y POS for BENZODIAZEPINES Y POS for COCAINE Y POS for METHADONE Y POS for OPIATES (INCLUDING FENTANYL) Y POS for OXYCODONE ADDITIONAL LAB(S) REQUESTED - if indicated, please order the following: NONE Plan Patient's visit frequency should be monthly. Frequency of UDS and confirmatory test, if applicable, should be monthly. Treatment plan review or change includes continue current level of care. Referrals made today include none. Prescription monitoring program is reviewed. If reviewed, I have identified agents prescribed to the patient in addition to any issued by our program; the patient is counseled regarding any risk of combining sedating agents. Not available 08/15/2021 17:38:51 Plan of Treatment Reminders Order Date Submit Date Provider Last Modified By Organization Details Last Modified Time Details Appointments None recorded. Lab drug screen, urine 2020 [facility], [address] [place], [id number], 05:01:51 drug screen, urine 2020 [facility], [address] [place], [address], 12:44:53 drug screen, urine 2020 [facility], [address] [place], [address], 11:48:11 drug screen, urine 2020 [facility], [address] [place], [address], 09:00:29 drug screen, urine 2020 [facility], [address] [place], [address], 08:57:15 Referral None recorded. Procedures None recorded. Surgeries None recorded. Imaging None recorded. Medication Orders buprenorphi ne 8 mg-naloxone 2 mg sublingual film 2020 021 [facility][id number], [address] [place], [address], 16:37:37 buprenorphi ne 8 mg-naloxone 2 mg sublingual film 2020 [facility][id number], [address] [place], [address], 16:54:17 Patient TargetsNo targets recorded. Patient InstructionsNo instructions recorded. Reason for Referral None Reported. Results Created Date Observation Date Name Description Value Unit Range Abnormal Flag Note LastModifiedBy Organization Detail LastModifiedTime 03/28/20 21 03/28/2021 [facility] PT SCR[facility] VIRY amphetamines NEGATI VE NG/mL 1,000 Elect en [email or web address] d by BEE HAMMER Not Available [address] [address] [place], [address], 03/30/2021 08:54:13 03/28/20 21 03/28/2021 [facility] PT [facility] VIRY benzodiazapi isabel NEGATI VE NG/mL 200 Not Available [address] [address] [place], [address], 03/30/2021 08:54:13 03/28/20 21 03/28/2021 [facility] PT SCREE VIRY buprenorphin e POSITI VE NG/mL 5 Not Available [facility], [address], 03/30/2021 08:54:13 03/28/20 21 03/28/2021 [facility] PT SCREE VIRY cocaine metabolite NEGATI VE NG/mL 150 Not Available [facility] [place], [address], 03/30/2021 08:54:13 03/28/20 21 03/28/2021 [facility] PT SCREE VIRY opiates NEGATI VE NG/mL 300 Not Available [facility], [address], 03/30/2021 08:54:13 03/28/20 21 03/28/2021 [facility] PT SCREE VIRY oxycodone NEGATI VE NG/mL 300 Not Available [facility], [address], 03/30/2021 08:54:13 03/28/20 21 03/28/2021 [facility] PT SCREE VIRY fentanyl NEGATI VE NG/mL 2 Not Available [address] [address] [place], [address], 03/30/2021 08:54:13 03/28/20 21 03/28/2021 [facility] PT SCREE VIRY ethyl alcohol NEGATI VE mg/dL 10 Not Available [facility], [address], 03/30/2021 08:54:13 03/28/20 21 03/28/2021 [facility] PT SCREE VIRY methadone metabolite NEGATI VE NG/mL 300 Not Available [address] [address] [place], [address], 03/30/2021 08:54:13 03/28/20 21 03/28/2021 [facility] PT SCREE VIRY urine creatinine 189.4 mg/dL >20 Not Available [address] [address] [place], [address], 03/30/2021 08:54:13 03/28/20 21 03/28/2021 [facility] PT SCREE VIRY urine pH 6.70 4.5-9. 0 Not Available [address] [address] [place], [address], 03/30/2021 08:54:13 03/28/20 21 03/28/2021 [facility] PT SCREE VIRY specific gravity 1.026 1.003- 1.035 Not Available [address] [address] [place], [address], 03/30/2021 08:54:13 03/28/20 21 03/28/2021 PRESC RIBED DRUG CONFI RMATI ON BUPRE [facility]PH INE 1, QN, U buprenorphin e 817.6 NG/mL 10 Elect en [email or web address] d by BEE HAMMER Not Available [address] [address] [address] [place], [address], 04/04/2021 13:49:29 03/28/20 21 03/28/2021 PRESC RIBED DRUG CONFI RMATI ON [facility] 1, QN, U norbuprenorp ashley 1054.5 NG/mL 10 Not Available [address] [address] [address] [place], [address], 04/04/2021 13:49:29 03/28/20 21 03/28/2021 PRESC RIBED DRUG CONFI RMATI ON BUPRE [facility]E 1, QN, U legend ABBREV IATION S LOW - Detec damien but unqua ntifi able OLR - Outsi de of linea r range ATR - Addit ional Testi ng Requi red Not Available [address] [address] [place], [address], 04/04/2021 13:49:29 03/28/20 21 03/28/2021 PRESC RIBED DRUG CONFI RMATI ON BUPRE NORPH INE 1, QN, U billing only ([id number]) BILLIN G ONLY Not Available [facility], [address], 04/04/2021 13:49:29 04/25/20 21 04/25/2021 [facility] PT SCREE VIRY amphetamines NEGATI VE NG/mL 1,000 Elect en [email or web address] d by BEE HAMMER Not Available [address] [address] [place], [address], 04/27/2021 08:57:15 04/25/20 21 04/25/2021 [facility] PT SCREE VIRY benzodiazapi isabel NEGATI VE NG/mL 200 Not Available [facility] [address] [place], [address], 04/27/2021 08:57:15 04/25/20 21 04/25/2021 [facility] PT SCREE VIRY buprenorphin e POSITI VE NG/mL 5 Not Available [address] [address] [place], [address], 04/27/2021 08:57:15 04/25/20 21 04/25/2021 [facility] PT SCREE VIRY cocaine metabolite NEGATI VE NG/mL 150 Not Available [address] [address] [place], [address], 04/27/2021 08:57:15 04/25/20 21 04/25/2021 [facility] PT SCREE VIRY opiates NEGATI VE NG/mL 300 Not Available [address] [address] [place], [address], 04/27/2021 08:57:15 04/25/20 21 04/25/2021 [facility] PT SCREE VIRY oxycodone NEGATI VE NG/mL 300 Not Available [facility], [address], 04/27/2021 08:57:15 04/25/20 21 04/25/2021 [facility] PT SCREE VIRY fentanyl NEGATI VE NG/mL 2 Not Available [facility], [address], 04/27/2021 08:57:15 04/25/20 21 04/25/2021 B[facility] PT SCREE VIRY ethyl alcohol NEGATI VE mg/dL 10 Not Available [facility], [address], 04/27/2021 08:57:15 04/25/20 21 04/25/2021 [facility] PT SCREE VIRY methadone metabolite NEGATI VE NG/mL 300 Not Available [address] [address] [place], [address], 04/27/2021 08:57:15 04/25/20 21 04/25/2021 [facility] PT SCREE VIRY urine creatinine 287.2 mg/dL >20 Not Available [address] [address] [place], [address], 04/27/2021 08:57:15 04/25/20 21 04/25/2021 [facility] PT SCREE VIRY urine pH 6.50 4.5-9. 0 Not Available [address] [address] [place], [address], 04/27/2021 08:57:15 04/25/2004/25/2021 [facility] PT SCREE VIRY specific gravity 1.033 1.003- 1.035 Not Available [address] [address] [place], [address], 04/27/2021 08:57:15 04/25/20 21 04/25/2021 PRESC RIBED DRUG CONFI RMATI ON BUPRE [facility]E 1, QN, U buprenorphin e 1323.2 NG/mL 10 Elect en sparks by BEE HAMMER Not Available [address] [address] [place], [address], 04/30/2021 13:51:22 04/25/20 21 04/25/2021 PRESC RIBED DRUG CONFI RMATI ON [facility]UPRE [facility]E 1, QN, U norbuprenorp ashley 1237.6 NG/mL 10 Not Available [address] [address] [place], [address], 04/30/2021 13:51:22 04/25/20 21 04/25/2021 PRESC RIBED DRUG CONFI RMATI ON BUPRE NORPH INE 1, QN, U legend ABBREV IATION S LOW - Detec damien but unqua ntifi able OLR - Outsi de of linea r range ATR - Addit ional Testi ng Requi red Not Available [address] [address] [place], [address], 04/30/2021 13:51:22 04/25/20 21 04/25/2021 [facility] RIBED DRUG CONFI RMATI ON BUPRE NORPH INE 1, QN, U billing only ([id number]) BILLIN G ONLY Not Available [facility], [address], 04/30/2021 13:51:22 05/23/20 21 05/23/2021 [facility] PT SCREE VIRY amphetamines Negati ve NG/mL 1,000 Taylor [email or web address] d by BEE HAMMER Not Available [address] [address] [place], [address], 05/25/2021 09:00:29 05/23/20 21 05/23/2021 [facility] PT SCREE VIRY benzodiazapi isabel Negati ve NG/mL 200 Not Available [facility], [address], 05/25/2021 09:00:29 05/23/20 21 05/23/2021 [facility]PH [facility]E PT SCREE VIRY buprenorphin e Positi ve NG/mL 5 Not Available [address] [address] [place], [address], 05/25/2021 09:00:29 05/23/20 21 05/23/2021 [facility] PT SCREE VIRY cocaine metabolite Negati ve NG/mL 150 Not Available [facility], [address], 05/25/2021 09:00:29 05/23/20 21 05/23/2021 BUP[facility] NORPH INE PT SCREE VIRY opiates Negati ve NG/mL 300 Not Available [facility], [address], 05/25/2021 09:00:29 05/23/20 21 05/23/2021 [facility] PT SCREE VIRY oxycodone Negati ve NG/mL 300 Not Available [address] [address] [place], [address], 05/25/2021 09:00:29 05/23/20 21 05/23/2021 [facility] PT SCREE VIRY fentanyl Negati ve NG/mL 2 Not Available [address] [address] [place], [address], 05/25/2021 09:00:29 05/23/20 21 05/23/2021 [facility] PT SCREE VIRY ethyl alcohol Negati ve mg/dL 10 Not Available [address] [address] [place], [address], 05/25/2021 09:00:29 05/23/20 21 05/23/2021 [facility] PT SCREE VIRY methadone metabolite Negati ve NG/mL 300 Not Available [address] [address] [place], [address], 05/25/2021 09:00:29 05/23/20 21 05/23/2021 [facility] PT SCREE VIRY urine creatinine 156.0 mg/dL >20 Not Available [address] [address] [place], [address], 05/25/2021 09:00:29 05/23/20 21 05/23/2021 [facility] PT SCREE VIRY urine pH 6.50 4.5-9. 0 Not Available [address] [address] [place], [address], 05/25/2021 09:00:29 05/23/20 21 05/23/2021 [facility] PT SCREE VIRY specific gravity 1.025 1.003- 1.035 Not Available [address] [place] [address] [place], [address], 05/25/2021 09:00:29 05/23/20 21 05/23/2021 PRESC RIBED DRUG CONFI RMATI ON [facility]UPRE [facility]E 1, QN, U buprenorphin e 544.6 NG/mL 10 Elect en sparks by BEE HAMMER Not Available [address] [place] [address] [address] [place], [address], 05/29/2021 05:43:42 05/23/20 21 05/23/2021 PRESC RIBED DRUG CONFI RMATI ON BUPRE NORPH INE 1, QN, U norbuprenorp ashley 1193.0 NG/mL 10 Not Available [address] [place] [address] [place], [address], 05/29/2021 05:43:42 05/23/20 21 05/23/2021 PRES RIBED DRUG CONFI RMATI ON BUPRE NORPH INE 1, QN, U legend Abbrev iation s LOW - Detec damien but unqua ntifi able OLR - Outsi de of linea r range ATR - Addit ional Testi ng Requi red Not Available [address] [address] [place], [address], 05/29/2021 05:43:42 05/23/20 21 05/23/2021 PRES RIBED DRUG CONFI RMATI ON BUPRE NORPH INE 1, QN, U billing only ([id number]) Billin g Only Not Available [address] [place] [address] [place], [address], 05/29/2021 05:43:42 06/20/20 21 06/20/2021 [facility] PT SCREE VIRY amphetamines Negati ve NG/mL 1,000 Elect en sparks by KRISTINE SALEH Not Available [address] [place] [address] [place], [address], 06/22/2021 11:48:11 06/20/20 21 06/20/2021 [facility] PT SCREE VIRY benzodiazapi isabel Negati ve NG/mL 200 Not Available [facility], [address], 06/22/2021 11:48:11 06/20/20 21 06/20/2021 [facility] PT SCREE VIRY buprenorphin e Positi ve NG/mL 5 Not Available [address] [place] [address] [place], [address], 06/22/2021 11:48:11 06/20/20 21 06/20/2021 [facility] PT SCREE VIRY cocaine metabolite Negati ve NG/mL 150 Not Available [place] [address] [address] [place], [address], 06/22/2021 11:48:11 06/20/20 21 06/20/2021 BUPRE NORPH INE PT SCREE VIRY opiates Negati ve NG/mL 300 Not Available [address] [address] [place], [address], 06/22/2021 11:48:11 06/20/20 21 06/20/2021 BUPRE NORPH INE PT SCREE VIRY oxycodone Negati ve NG/mL 300 Not Available [address] [address] [place], [address], 06/22/2021 11:48:11 06/20/20 21 06/20/2021 BUPRE NORPH INE PT SCREE VIRY fentanyl Negati ve NG/mL 2 Not Available [address] [address] [place], [address], 06/22/2021 11:48:11 06/20/20 21 06/20/2021 BUPRE NORPH INE PT SCREE VIRY ethyl alcohol Negati ve mg/dL 10 Not Available [address] [address] [place], [address], 06/22/2021 11:48:11 06/20/20 21 06/20/2021 BUPRE NORPH INE PT SCREE VIRY methadone metabolite Negati ve NG/mL 300 Not Available [address] [address] [place], [address], 06/22/2021 11:48:11 06/20/20 21 06/20/2021 BUPRE NORPH INE PT SCREE VIRY urine creatinine 151.5 mg/dL >20 Not Available [address] [address] [address] [place], [address], 06/22/2021 11:48:11 06/20/20 21 06/20/2021 BUPRE NORPH INE PT SCREE VIRY urine pH 8.10 4.5-9. 0 Not Available [place] [address] [place], [address], 06/22/2021 11:48:11 06/20/20 21 06/20/2021 BUPRE NORPH INE PT SCREE VIRY specific gravity 1.020 1.003- 1.035 Not Available [address] [address] [place], [address], 06/22/2021 11:48:11 06/20/20 21 06/20/2021 PRESC RIBED DRUG CONFI RMATI ON BUPRE NORPH INE 1, QN, U buprenorphin e 530.2 NG/mL 10 Taylor mcintosh d by KRISTINE SALEH Not Available [address] [address] [place], [address], 06/26/2021 06:05:22 06/20/20 21 06/20/2021 PRESC RIBED DRUG CONFI RMATI ON BUPRE NORPH INE 1, QN, U norbuprenorp ashley 302.8 NG/mL 10 Not Available [address] [address] [place], [address], 06/26/2021 06:05:22 06/20/20 21 06/20/2021 PRESC RIBED DRUG CONFI RMATI ON BUPRE NORPH INE 1, QN, U legend Abbrev iation s LOW - Detec damien but unqua ntifi able OLR - Outsi de of linea r range ATR - Addit ional Testi ng Requi red Not Available [address] [address] Patricia Fra[place]opeeSRINI, [address], 06/26/2021 06:05:22 06/20/20 21 06/20/2021 PRESC RIBED DRUG CONFI RMATI ON BUPRE NORPH INE 1, QN, U billing only ([id number]) Billin g Only Not Available [facility] [place], [address], 06/26/2021 06:05:22 07/18/20 21 07/18/2021 BUPRE NORPH INE PT SCREE VIRY amphetamines NEGATI VE NG/mL 1,000 Elect en mcintosh d by KRISTINE SALEH Not Available [address] [address] [facility] [place], [address], 07/20/2021 12:44:53 07/18/20 21 07/18/2021 BUPRE NORPH INE PT SCREE VIRY benzodiazapi isabel NEGATI VE NG/mL 200 Not Available [facility] [place], [address], 07/20/2021 12:44:53 07/18/20 21 07/18/2021 BUPRE NORPH INE PT SCREE VIRY buprenorphin e POSITI VE NG/mL 5 Not Available [facility] [place], [address], 07/20/2021 12:44:53 07/18/20 21 07/18/2021 BUPRE NORPH INE PT SCREE VIRY cocaine metabolite NEGATI VE NG/mL 150 Not Available [facility] [place], [address], 07/20/2021 12:44:53 07/18/20 21 07/18/2021 BUPRE NORPH INE PT SCREE VIRY opiates NEGATI VE NG/mL 300 Not Available [address] [address] [place], [address], 07/20/2021 12:44:53 07/18/20 21 07/18/2021 BUPRE NORPH INE PT SCREE VIRY oxycodone NEGATI VE NG/mL 300 Not Available [address] [address] [place], [address], 07/20/2021 12:44:53 07/18/20 21 07/18/2021 BUPRE NORPH INE PT SCREE VIRY fentanyl NEGATI VE NG/mL 2 Not Available [address] [address] [place], [address], 07/20/2021 12:44:53 07/18/20 21 07/18/2021 BUPRE NORPH INE PT SCREE VIRY ethyl alcohol NEGATI VE mg/dL 10 Not Available [address] [address] [place], [address], 07/20/2021 12:44:53 07/18/20 21 07/18/2021 BUPRE NORPH INE PT SCREE VIRY methadone metabolite NEGATI VE NG/mL 300 Not Available [address] [address] [place], [address], 07/20/2021 12:44:53 07/18/20 21 07/18/2021 BUPRE NORPH INE PT SCREE VIRY urine creatinine 243.8 mg/dL >20 Not Available [place] [address] [address] [place], [address], 07/20/2021 12:44:53 07/18/20 21 07/18/2021 BUPRE NORPH INE PT SCREE VIRY urine pH 6.60 4.5-9. 0 Not Available [address] [place] [address] [place], [address], 07/20/2021 12:44:53 12/01/07/18/2021 BUPRE NORPH INE PT JACKI BAIRES specific gravity 1.029 1.003- 1.035 Not Available [address] [place] [address] Patricia [place]INI, [address], 07/20/2021 12:44:53 07/18/20 21 07/18/2021 PRESC RIBED DRUG CONFI RMATI ON BUPRE NORPH INE 1, QN, U buprenorphin e 857.0 NG/mL 10 Elect en mcintosh d by KRISTINE SALEH Not Available [address] [address] [place], [address], 07/24/2021 05:14:19 07/18/20 21 07/18/2021 PRESC RIBED DRUG CONFI RMATI ON BUPRE NORPH INE 1, QN, U norbuprenorp ashley 594.9 NG/mL 10 Not Available [address] [address] [place], [address], 07/24/2021 05:14:19 07/18/20 21 07/18/2021 PRESC RIBED DRUG CONFI RMATI ON BUPRE NORPH INE 1, QN, U legend ABBREV IATION S LOW - Detec damien but unqua ntifi able OLR - Outsi de of linea r range ATR - Addit ional Testi ng Requi red Not Available [address] [address] [place], [address], 07/24/2021 05:14:19 07/18/20 21 07/18/2021 PRESC RIBED DRUG CONFI RMATI ON BUPRE NORPH INE 1, QN, U billing only ([id number]) BILLIN G ONLY Not Available [address] [address] [place], [address], 07/24/2021 05:14:19 Result Notes None recorded. Problems Name Problem SNOMED Code Status Onset Date Resolution Date Notes Provider Name and Address Organization Details Recorded Time Opioid dependence 73843372 Active 020 Nati Manning MD [address] [place] [address] [place], [address], [facility] 16:38:23 Nicotine dependence 07731872 Active 021 BEE HAMMER, DANA [address] [place], [address], [facility] [employer] 16:44:55 Problem Notes None recorded. Procedures Surgical History Date Name Laterality Status Provider Name and Address Organization Details Recorded Time 08/15/2021 37385, G0480, G0481 completed [facility] 08/15/2021 16:31:58 07/18/2021 00860, G0480, G0481 completed [facility] 07/18/2021 16:22:56 06/20/2021 35315, G0480, G0481 completed [facility] 06/20/2021 16:39:36 05/23/2021 95060, G0480, G0481 completed Sharon Colon [facility] 05/23/2021 16:16:03 04/25/2021 93227, G0480, G0481 completed [facility] 04/25/2021 16:08:14 03/28/2021 69721, G0480, G0481 completed [employer] 03/28/2021 16:17:03 02/28/2021 76042, G0480, G0481 completed Darleen Jose [facility] 02/28/2021 16:24:19 01/31/2021 64338, G0480, G0481 completed Clara Colon [facility] 01/31/2021 16:12:46 01/03/2021 04727, G0480, G0481 completed Marcia Keith [facility] 01/03/2021 16:12:26 2020 75047, G0480, G0481 completed Stephenie Luna [facility] 2020 15:55:32 11/08/2020 23447, G0480, G0481 completed Stephenie Jeremy [place] - [facility] 11/08/2020 16:11:55 10/11/2020 61567, G0480, G0481 completed Stephenie Jeremy [place] - [facility] 10/11/2020 16:06:40 09/13/2020 24170, G0480, G0481 completed Stephenie Jeremy [place] - [facility] 09/13/2020 16:14:39 08/16/2020 51098, G0480, G0481 completed Clara Colon [place] - [facility] 08/16/2020 16:10:19 07/20/2020 61955, G0480, G0481 completed ROHIT MURPHY ENERGY AND CONSERVATION TECHNICIAN [address] [place], [address], [facility] 07/20/2020 08:23:15 06/21/2020 37194, G0480, G0481 completed Stephenie Jeremy [place] - [facility] 06/21/2020 16:07:25 05/24/2020 20390, G0480, G0481 completed Stephenie Jeremy [place] - [facility] 05/24/2020 16:01:30 04/26/2020 49539, G0480, G0481 completed Stephenie Jeremy [place] - [facility] 04/26/2020 16:11:30 03/29/2020 17613, G0480, G0481 completed GLADIS GUY, GEOSPATIAL INFORMATION TECHNOLOGIST-BC [address] [place], [address], [facility] 03/28/2020 18:57:41 03/01/2020 51770, G0480, G0481 completed Stephenie Jeremy [place] - [facility] 03/01/2020 16:39:14 02/16/2020 85142, G0480, G0481 completed Stephenie Jeremy [place] - [facility] 02/16/2020 16:07:13 02/02/2020 47188, G0480, G0481 completed Stephenie Jeremy [place] - [facility] 02/02/2020 16:07:52 01/19/2020 24110, G0480, G0481 completed Stephenie Jeremy [place] - [facility] 01/19/2020 16:12:06 01/05/2020 51072, G0480, G0481 completed [place], 01/05/2020 16:44:08 12/22/2019 11552, G0480, G0481 completed Sharon [employer] [place] [facility] 12/22/2019 16:16:20 12/08/2019 56924, G0480, G0481 completed StephenieM-Files [place] [facility] 12/08/2019 16:48:26 11/24/2019 57786, G0480, G0481 completed Kraig Jimenez [place] [facility] 11/24/2019 16:02:32 11/18/2019 28174, G0480, G0481 completed [employer], 11/18/2019 16:15:28 11/03/2019 42233, G0480, G0481 completed [employer] [place] [employer], 11/03/2019 16:08:48 10/27/2019 34676, G0480, G0481 completed Sharon [employer] [place] [facility] 10/27/2019 16:19:19 10/20/2019 99278, G0480, G0481 completed Sharon Colon [employer], 10/20/2019 16:12:46 10/13/2019 78553, G0480, G0481 completed Sharon Colon [place] [facility], 10/13/2019 16:23:54 10/06/2019 08645, G0480, G0481 completed Sharon [employer], 10/06/2019 15:33:03 Imaging Results None recorded. Procedure Notes None recorded. Medical Equipment None Reported. Allergies No known drug allergies Medications Name Sig Start Date Stop Date Status Note LastModified by Organization Details LastModified Time nicotine 14 mg/24 hr daily transdermal patch APPLY 1 PATCH ONCE DAILY 02/28 completed Not Available Not Available Not Available amoxicillin 875 mg tablet 02/28 completed Not Available Not Available Not Available nicotine (polacrilex ) 4 mg gum CHEW 1 PIECE OF GUM EVERY 3 4 HOURS BY MOUTH FOR 28 DAYS. 02/28 completed Not Available Not Available Not Available cephalexin 500 mg capsule 03/29 completed Not Available Not Available Not Available naproxen sodium 550 mg tablet 02/28 completed Not Available Not Available Not Available nicotine 21 mg/24 hr daily transdermal patch APPLY 1 PATCH EVERY DAY 02/28 completed Not Available Not Available Not Available nicotine 7 mg/24 hr daily transdermal patch APPLY 1 PATCH EVERY DAYNOT COVERED BY INSURANCE MAX IN 180DAYS active Not Available Not Available No t Available buprenorphi ne 8 mg-naloxone 2 mg sublingual film DISSOLVE 2 FILMS UNDER TONGUE ONCE DAILY active Not Available Not Available No t Available Sublocade 300 mg/1.5 mL solution,ex tended release subcutaneou s syringe Inject 1.5 mL every month by subcutane ous route. 03/28 completed Not Available Not Available Not Available Vitals Date Recorded Heart rate Oxygen saturation Oxygen saturation in Arterial blood by Pulse oximetry Body temperature Provider Name and Address Organization Details Last Updated DateTime 04/25/2021 82 /min 98 % 98 % 97.6 [degF] [facility] [employer], 16:10:27 Date Recorded Heart rate Oxygen saturation Oxygen saturation in Arterial blood by Pulse oximetry Body temperature Provider Name and Address Organization Details Last Updated DateTime 06/20/2021 90 /min 98 % 98 % 98.5 [degF] [facility] [employer], 16:40:00 Date Recorded Heart rate Oxygen saturation Oxygen saturation in Arterial blood by Pulse oximetry Body temperature Provider Name and Address Organization Details Last Updated DateTime 07/18/2021 94 /min 98 % 98 % 98.4 [degF] [facility] [employer], 16:24:58 Date Recorded Heart rate Oxygen saturation Oxygen saturation in Arterial blood by Pulse oximetry Body temperature Provider Name and Address Organization Details Last Updated DateTime 08/15/2021 94 /min 97 % 97 % 98.1 [degF] [facility] [employer], 16:32:30 Social History Question Answer Notes LastModified by Organizat ion Details LastModified Time Tobacco Smoking Status Current Every Day Smoker Nati Manning MD [address] [place] [address], [address], [employer], 10/06/2019 16:38:43 How Much Tobacco Do You Smoke? 0.5 PPD [email or web address] Information not available 10/06/2019 Sex: Unknown Functional Status None recorded. Mental Status None recorded. Family History Nothing Reported. Medical History No medical history recorded. Past Encounters Encounter ID Performer Location Encounter Start Date Encounter Closed Date Diagnosis/Indication Diagnosis SNOMED-CT Code Diagnosis ICD10 Code Diagnosis Note [id number] MD Radha Simmons [address] [address] 10/06/2019 15:26:39 10/06/2019 17:24:18 Opioid dependence 21397900 F11.20 [id number] MD Radha Simmons [address] [address] 10/13/2019 16:12:09 10/13/2019 16:49:48 Opioid dependence 47445208 F11.20 [id number] MD [facility] [address] [address] 10/20/2019 16:07:58 11/02/2019 16:03:48 Opioid dependence 58796285 F11.20 [id number] MD [facility] [address] [address] 10/27/2019 16:07:34 10/27/2019 17:18:30 Opioid dependence 42845970 F11.20 [id number] MD [facility] [address] [address] 11/03/2019 16:05:14 11/03/2019 16:30:27 Opioid dependence 83494175 F11.20 [id number] MD Radha Simmons [address] [address] 11/10/2019 16:53:01 11/10/2019 17:33:48 Opioid dependence 86656320 F11.20 [id number] MD Radha Simmons [address] [address] 11/18/2019 16:06:58 11/18/2019 17:05:35 Opioid dependence 75379441 F11.20 [id number] Nati Manning MD [facility] [address] [place] [address] 11/24/2019 16:01:55 11/24/2019 16:26:10 Opioid dependence 84974378 F11.20 [id number] Nati Manning MD [facility] [address] [place] [address] 12/08/2019 16:47:30 12/08/2019 16:57:04 Opioid dependence 46362955 F11.20 [id number] Nati Manning MD [facility] [address] [place] [address] 12/22/2019 16:09:00 12/22/2019 16:28:47 Opioid dependence 06096240 F11.20 [id number] Nati Manning MD [facility] [address] [place] [address] 01/05/2020 16:16:24 01/06/2020 09:13:45 Opioid dependence 97910001 F11.20 [id number] Nati Manning MD [facility] [place] [address] 01/19/2020 16:07:28 01/19/2020 16:31:24 Opioid dependence 29859481 F11.20 [id number] Nati Manning MD [facility] [address] [place] [address] 02/02/2020 16:05:37 02/02/2020 16:39:53 Opioid dependence 88000756 F11.20 [id number] MD [facility] [address] [place] [address] 02/16/2020 16:06:17 02/16/2020 16:43:01 Opioid dependence 17442518 F11.20 [id number] MD [facility] [address] [address] 03/01/2020 16:14:51 03/01/2020 17:57:41 Opioid dependence 91958542 F11.20 [id number] Swathi Jason MD [facility] [address] [address] 03/29/2020 16:05:18 03/29/2020 16:52:34 Opioid dependence 94456038 F11.20 Fatigue 33272951 R53.83 Attacks of weakness 2482 00514 R53.1 Inflammato ry disease of liver 196039253 K75.9 Viral screening NOS 1711 03814 Z11.59 [id number] Lamar Saleh MD Radha [address] [address] 04/26/2020 15:58:10 04/26/2020 16:38:38 Opioid dependence 44839077 F11.20 Tobacco de pendence syndrome 98826225 F17.200 [id number] Rodrigo Hollis DO [facility] [address] [address] 05/24/2020 15:57:17 05/24/2020 17:51:03 Opioid dependence 65696955 F11.20 [id number] Rodrigo Hollis DO [facility] [address] [address] 06/21/2020 16:05:23 06/21/2020 16:50:39 Opioid dependence 85943316 F11.20 Nicotine dependence 5629 4008 F17.200 [id number] Rodrigo Hollis DO [facility] [address] [address] 07/20/2020 10:25:40 07/20/2020 10:52:04 Opioid dependence 08085973 F11.20 Nicotine dependence 5629 4008 F17.200 [id number] Rodrigo Hollis DO [facility] [address] [address] 08/16/2020 16:05:21 08/16/2020 16:42:45 Opioid dependence 82619732 F11.20 Tobacco de pendence syndrome 80780703 F17.200 [id number] Rodrigo Hollis DO [facility] [address] [place] [address], [place] [address] 09/13/2020 16:11:29 09/13/2020 16:58:37 Opioid dependence 62179458 F11.20 [id number] Rodrigo Hollis DO [facility] [address] [place] [address], [place] [address] 10/11/2020 16:05:18 10/11/2020 16:46:08 Opioid dependence 44890905 F11.20 Stable with ongoing neg UDS, no cravings or illicit use Nicotine dependence 5629 4008 F17.200 Continues to smoke despite smoking cessation measure but has strong desire to quit [id number] Rodrigo Hollis DO [facility] [address] [place] [address], [place] [address] 11/08/2020 16:09:46 11/08/2020 16:51:54 Opioid dependence 01830048 F11.20 Stable with ongoing neg UDS, no cravings or illicit use [id number] Rodrigo Hollis DO [facility] [address] [place] [address], [place] [address] 2020 15:53:26 2020 16:41:54 Opioid dependence 82275566 F11.20 Stable with ongoing neg UDS, no cravings or illicit use [id number] Rodrigo Hollis DO [facility] [address] [place] [address] 01/03/2021 16:06:18 01/03/2021 16:41:44 Opioid dependence 82455423 F11.20 Stable with ongoing neg UDS, no cravings or illicit use Nicotine dependence 5629 4008 F17.200 Continues to smoke despite smoking cessation measure but has strong desire to quit [id number] Rodrigo Hollis DO [facility] [address] [place] [address], [place] [address] 01/31/2021 16:11:06 01/31/2021 16:39:03 Opioid dependence 06614422 F11.20 Stable with ongoing neg UDS, no cravings or illicit use Nicotine dependence 5629 4008 F17.200 Continues to smoke despite smoking cessation measure but has strong desire to quit [id number] Lamar Saleh MD [facility] [place] [address] 02/28/2021 16:04:39 03/02/2021 16:33:22 Opioid dependence 29379335 F11.20 Stable: >6 months without illicit opiate use [id number] Rodrigo Hollis DO [facility] [place] [address] 03/28/2021 16:07:17 03/28/2021 16:38:51 Opioid dependence 91070287 F11.20 STABLE [id number] Rodrigo Hollis DO [facility] [place] [address] 04/25/2021 16:06:35 04/25/2021 16:46:39 Opioid dependence 87100485 F11.20 STABLE Nicotine dependence 5629 4008 F17.200 UNSTBLE R/T CONT USE [id number] Rodrigo Hollis DO [facility] [place] [address] 05/23/2021 16:09:25 05/24/2021 16:22:53 Opioid dependence 50658903 F11.20 STABLE [id number] Lamar Saleh MD [facility] [place] [address] 06/20/2021 16:15:39 06/21/2021 13:44:27 Opioid dependence 44311500 F11.20 STABLE Nicotine dependence 5629 4008 F17.200 UNSTABLE. SMOKES ONLY ~ 1 CIG/DAY. USES NRT [id number] Laamr Saleh MD [facility] [address] 07/18/2021 16:12:00 07/18/2021 17:01:22 Opioid dependence 22452475 F11.20 STABLE [id number] Rodrigo DO [facility] [address] 08/15/2021 16:27:21 08/16/2021 14:27:32 Opioid dependence 56514513 F11.20 STABLE Health Concerns Section Related Observation LastModified by Organization Detai ls LastModified Time None Recorded Concern Status LastModified by Organization Details LastModified Time None Recorded Advance Directives Directive None Recorded Payers Insurance Date Sequence Insurance Name Policy Number Policy [place] Covered Member ID [place] Member ID Guarantor Name 08/12/2021 1 [facility] [id number] [facility] [id number] [facility] Notes Date Note Type Note Provider Name and Address Organization Details Recorded Time 04/25/2021 text/html The patient reports doing well since last visit and denies slip or relapse. MAT HPIThey deny cravings for opiates and deny opiates use since their last visit. They deny cravings for other substances and deny other substance use since their last visit. Triggers are identified and any alleviating factors to identified triggers are discussed. Withdrawal symptoms are not present. MAT Administration and Program AdherenceThe patient is compliant with prescribed buprenorphine dose and can describe proper medication administration and technique. The patient denies side effects from the medication. The patient has not attended counseling since their last MAT visit and is in program compliance. There are other support systems in place for this patient. There is no concern for diversion. BEE HAMMER NP [address] [place] [address], [phone], [facility] [employer] [facility], 04/25/2021 16:46:24 05/23/2021 text/html The patient reports doing well since last visit and denies slip or relapse. MAT HPIThey deny cravings for opiates and deny opiates use since their last visit. They deny cravings for other substances and deny other substance use since their last visit. Triggers are identified and any alleviating factors to identified triggers are discussed. Withdrawal symptoms are not present. MAT Administration and Program AdherenceThe patient is compliant with prescribed buprenorphine dose and can describe proper medication administration and technique. The patient denies side effects from the medication. The patient has attended counseling since their last MAT visit and is in program compliance. There are other support systems in place for this patient. There is no concern for diversion. BEE HAMMER NP [address] [place] [address], [phone], [facility] [employer] [facility], 05/23/2021 17:19:05 06/20/2021 text/html The patient repo rts doing well since last visit and denies slip or relapse. MAT HPIThey deny cravings for opiates and deny opiates use since their last visit.They deny cravings for other substances and deny other substance use since their last visit.Triggers are not identified and any alleviating factors to identified triggers are discussed.Withdrawal symptoms are not present. MAT Administration and Program AdherenceThe patient is compliant with prescribed buprenorphine dose and can describe proper medication administration and technique.The patient denies side effects from the medication.There are other support systems in place for this patient. There is no concern for diversion. Lamar Saleh MD [address] [place] [address], [phone], [facility] [employer] [facility], 06/20/2021 17:23:12 07/18/2021 text/html The patient repo rts doing well since last visit and denies slip or relapse. MAT HPI They deny cravings for opiates and deny opiates use since their last visit. They deny cravings for other substances and deny other substance use since their last visit. Triggers are not identified and any alleviating factors to identified triggers are discussed. Withdrawal symptoms are not present. MAT Administration and Program Adherence The patient is compliant with prescribed buprenorphine dose and can describe proper medication administration and technique. The patient denies side effects from the medication. There are other support systems in place for this patient. There is no concern for diversion. Lamar Saleh MD [address] [place] [address], [phone], [facility] [employer] [facility], 07/18/2021 17:11:37 08/15/2021 text/html The patient reports doing well since last visit and denies slip or relapse. MAT HPIThey deny cravings for opiates and deny opiates use since their last visit. They deny cravings for other substances and deny other substance use since their last visit. Triggers are identified and any alleviating factors to identified triggers are discussed. Withdrawal symptoms are not present. MAT Administration and Program AdherenceThe patient is compliant with prescribed buprenorphine dose and can describe proper medication administration and technique. The patient denies side effects from the medication. The patient has not attended counseling since their last MAT visit and is in program compliance. There are other support systems in place for this patient. There is no concern for diversion. BEE HAMMER NP [address] [place] [address], [phone], [facility], 08/15/2021 17:39:03
--- OUTSIDE RECORDS SUMMARY | 2025-02-21 15:37 | XMS_ITS | Encounter Summary ---
Author Organization [facility] Address [address] [place] [address] Care Team Providers Care Central Supply Technician Supervisor Name Role Phone Jenny Kaye MD Primary Care Provider Encounter Details Date Type Department Care Team (Late st Contact Info) Description 10/29/2024 Lab Requisition [facility] - Main Lab [address] [facility] [place] [address] Beau Pisano PA [address] [place] [phone] Testicular hypofunction Social History Tobacco Use Types Packs/Day Years Used Date Smoking Tobacco: Never Assessed Sex and Gender Information Value Date Recorded Sex Assigned at Not on file Legal Sex Male 12:44 PM EST Gender Identity Not on file Sexual Orientation Not on file documented as of this encounter Plan of Treatment Not on file documented as of this encounter Procedures Procedure Name Priority Date/Time Associated Diagnosis Comments PROLACTIN Routine 10/29/2024 8:32 AM EDT Testicular hypofunction COMPLETE BLOOD COUNT Routine 10/29/2024 8:32 AM EDT Testicular hypofunction LUTEINIZING HORMONE Routine 10/29/2024 8 :32 AM EDT Testicular hypofunction FOLLICLE STIMULATING HORMONE Routine 10/29/2024 8:32 AM EDT Testicular hypofunction HEPATIC FUNCTION PANEL Routine 10/29/2024 8:32 AM EDT Testicular hypofunction documented in this encounter Results * Luteinizing hormone (10/29/2024 8:32 AM EDT) Luteinizing Hormone 1.7 1.2 - 10.6 mIU/mL LAB CHEMISTRY METHOD 10/29/2024 1:25 PM EDT [facility] Blood Venous blood specimen / Unknown 10/29/2024 8:32 AM EDT 10/29/2024 11:23 AM EDT us Beau SHAFER LAB BLOOD ORDERABLES Final Res ult [facility] [address] [place] [address], [place] [phone] * Follicle stimulating hormone (10/29/2024 8:32 AM EDT) Follicle Stimulating Hormone 8.6 0.7 - 10.8 mIU/mL LAB CHEMISTRY METHOD 10/29/2024 1:32 PM EDT [facility] Blood Venous blood specimen / Unknown 10/29/2024 8:32 AM EDT 10/29/2024 11:23 AM EDT Beau SHAFER LAB BLOOD ORDERABLES Final Res ult Performing Organization Address City/[facility]/ZIP Co de Phone Number [facility] [address] [place] [address], [place] [phone] * Prolactin (10/29/2024 8:32 AM EDT) Prolactin 3.50 2.50 - 17.40 ng/mL LAB CHEMISTRY METHOD 10/29/2024 1:25 PM EDT [facility] Blood Venous blood specimen / Unknown 10/29/2024 8:32 AM EDT 10/29/2024 11:23 AM EDT us Beau SHAFER LAB BLOOD ORDERABLES Final Res ult [facility] [address] [place] [address], [place] [phone] * Hepatic function panel (10/29/2024 8:32 AM EDT) [facility] Total Protein 7.4 6.0 - 8.0 g/dL LAB CHEMISTRY METHOD 10/29/2024 1:25 PM EDT [facility] Albumin 4.3 3.2 - 5.0 g/dL LAB CHEMISTRY METHOD 10/29/2024 1:25 PM EDT [facility] Total Bilirubin 1.0 0.0 - 1.4 mg/dL LAB CHEMISTRY METHOD 10/29/2024 1:25 PM EDT [facility] Bilirubin, Direct 0.3 0.0 - 0.3 mg/dL LAB CHEMISTRY METHOD 10/29/2024 1:25 PM EDT [facility] Bilirubin, Indirect 0.7 0.0 - 1.1 mg/dL LAB CHEMISTRY METHOD 10/29/2024 1:25 PM EDT [facility] ALT (SGPT) 17 10 - 60 unit/L LAB CHEMISTRY METHOD 10/29/2024 1:25 PM EDT [facility] AST (SGOT) 11 10 - 42 unit/L LAB CHEMISTRY METHOD 10/29/2024 1:25 PM EDT [facility] Alkaline Phosphatase 95 42 - 121 unit/L LAB CHEMISTRY METHOD 10/29/2024 1:25 PM EDT [facility] Blood Venous blood specimen / Unknown 10/29/2024 8:32 AM EDT 10/29/2024 11:23 AM EDT us Beau SHAFER LAB BLOOD ORDERABLES Final Res ult [facility] [address] [place] [address], [place] [phone] * Complete blood count (10/29/2024 8:32 AM EDT) [facility] WBC 9.2 4.8 - 10.8 K/mcL LAB HEMETOLOGY METHOD 10/29/2024 12:[address] [facility] RBC 5.40 4.50 - 5.50 M/mcL LAB HEMETOLOGY METHOD 10/29/2024 12:[address] [facility] Hemoglobin 15.4 13.5 - 17.5 g/dL LAB HEMETOLOGY METHOD 10/29/2024 12:[address] [facility] Hematocrit 45.8 42.0 - 54.0 % LAB HEMETOLOGY METHOD 10/29/2024 12:[address] [facility] MCV 85.0 79.0 - 98.0 FL LAB HEMETOLOGY METHOD 10/29/2024 12:[address] [facility] MCH 28.6 27.0 - 32.0 pcg LAB HEMETOLOGY METHOD 10/29/2024 12:[address] [facility] MCHC 33.6 32.0 - 37.0 g/dL LAB HEMETOLOGY METHOD 10/29/2024 12:[address] [facility] RDW 12.9 11.0 - 15.0 % LAB HEMETOLOGY METHOD 10/29/2024 12:[address] [facility] Platelets 353 130 - 400 K/mcL LAB HEMETOLOGY METHOD 10/29/2024 12:[address] [facility] MPV 9.9 7.0 - 11.0 FL LAB HEMETOLOGY METHOD 10/29/2024 12:[address] [facility] NRBC 0.0 <1.0 % LAB HEMETOLOGY METHOD 10/29/2024 12:[address] [facility] NRBC Absolute 0.00 <0.10 K/mcL LAB HEMETOLOGY METHOD 10/29/2024 12:[address] [facility] Blood Venous blood specimen / Unknown 10/29/2024 8:32 AM EDT 10/29/2024 11:23 AM EDT us Beau SHAFER LAB BLOOD ORDERABLES Final Res ult [facility] [address] [place] [address], documented in this encounter Visit Diagnoses Diagnosis Testicular hypofunction Other testicular hypofunction documented in this encounter Care Teams Central Supply Technician Supervisor Relationship Specialty Start Date End Date Jenny Kaye MD [address] [place] [id number] PCP - General Internal Medicine 10/29/24 documented as of this encounter
--- OUTSIDE RECORDS SUMMARY | 2025-02-21 15:37 | XMS_ITS | Clinical Summary ---
Author Organization [facility] Address [address] [place] [address] Phone Care Team Providers Care Chainsaw Mechanic Name Role Phone Unavailable Primary Care Provider Unavailabl e Immunizations Immunization Administration Dates Next Due DTaP 5 07/17/1998, 8,02/14/1998,1992,01/15/1990 Hep B, ped/adol 04/17/2001,02/14/2001,12/15/2000 Hib (PRP-T) 07/17/1990 IPV 05/17/1998, 8,04/17/1993,1989 MMR 11/15/2000,10/15/1989 Td (adult) (MBL), 2 Lf tetan us toxoid, PF, adsorbed 11/15/2000 Family History Relation Name Status Comments Brother Alive Brother: Alive and well Father Alive Father: ADD/ADH D Mother Alive Mother: Alive a nd well Other No family histo ry of Deafness, No family history of Sudden /[place] under age 55, No family history of Elevated cholesterol, No family history of Autism, No family history of Seizure disorder, No family history of Asthma, No family history of Diabetes mellitus, No family history of Developmental dislocation of hip, No family history of Strabismus/amblyopia, No family history of Obesity, No family history of Migraines Social History Tobacco Use Types Packs/Day Years Used Date Smoking Tobacco: Never Assessed Sex and Gender Information Value Date Recorded Sex Assigned at Not on file Legal Sex Male 4:11 PM EDT Gender Identity Not on file Sexual Orientation Not on file Plan of Treatment Health Maintenance Due Date Last Done Comments Varicella Vaccines (1 of 2 - 13+ 2-dose series) 12/13/2000 DTaP,Tdap,and Td Vaccines (7 - Tdap) 11/15/2010 11/15/2000, 07/17/1998, 05/17/1998, Additional history exists COVID-19 Vaccine (2023- season) 2024 Influenza Vaccines (#1) 2025 HIB Vaccines Completed 07/17/1990 IPV Vaccines Completed 05/17/1998, 01/18, 04/17/1993, Additional history exists MMR Vaccines Completed 11/15/2000, 10/15/1989 Hepatitis B Vaccines Completed 04/17/2001, 02/14/2001, 12/15/2000 HPV Vaccines Aged Out No longer eligi ble based on patient's age to complete this topic Hepatitis A Vaccines Aged Out No long er eligible based on patient's age to complete this topic Men B Vaccine Aged Out No longer elig ible based on patient's age to complete this topic Meningococcal Vaccine Aged Out No dilshad xander eligible based on patient's age to complete this topic Pneumococcal Vaccine Aged Out No long er eligible based on patient's age to complete this topic
== END 2025-02-21 15:38 | disposition home or self-care (01) ==
LOC: HO.HSM 15:19
PROVIDERS: PCP Internal Medicine; Visit Provider Psychiatry & Neurology Neurology
DX: G40.309 Generalized idiopathic epilepsy and epileptic syndromes, not intractable, without status epilepticus (principal)
CPT/HCPCS: 99214